=== PATIENT | female | born 1965 | race Caucasian/White ===

== ENCOUNTER 2022-04-23 16:09 | Emergency (ER) | payer OTHER, SELFPAY ==
[2022-04-23] VITALS (17 sets, daily range): BP systolic 119–142; BP diastolic 65–81; PULSE 84–103; RESP 11–23; TEMP 37; O2SAT 96–99; BMI 24.7
--- NOTE | 2022-04-23 16:24 | DI.RAD.S_ITS ---
PROCEDURE: XR CHEST 1V INDICATIONS: chest pain TECHNIQUE: One view of the chest was acquired. COMPARISON: None. FINDINGS: Surgical changes and devices: None. Lungs and pleura: Mild coarsening at the right base. Mediastinum: Mediastinal contours appear normal. Heart size is normal. Bones and chest wall: No suspicious bony lesions. Overlying soft tissues appear unremarkable. IMPRESSION: Mild right basilar coarsening suggestive of edema versus developing pneumonia. Dictated by: Eliza Nolan M.D. on 04/23/2022 at 17:13 Approved by: Eliza Nolan M.D. on 04/23/2022 at 17:14
[2022-04-23 16:44] LABS: Add Manual Diff / Slide Review NO; Basophils Absolute Auto 0 /uL (0-100); Basophils Percent Auto 0.5 % (0-2); Eosinophils Absolute Auto 100 /uL (0-450); Eosinophils Percent Auto 0.9 % (2-4); Hematocrit 40.4 % (36-46); Hemoglobin 13.7 g/dL (12.0-16.0); Lymphocytes Absolute Auto 1500 /uL (1100-4500); Lymphocytes Percent Auto 20.6 % (25-40); Mean Corpuscular HGB Conc 33.8 % (30-36); Mean Corpuscular Hemoglobin 29.8 PG (26-34); Mean Corpuscular Volume 88.1 fL (80-100); Monocytes Absolute Auto 800 /uL (0-900); Neutrophils Absolute Auto 4800 /uL (1500-7000); Platelet Count 352 X10^3/uL (150-400); Red Blood Cell Count 4.58 X10^6/uL (4.0-5.2); Red Cell Distribution Width 13.7 % (11.6-14.8); White Blood Cell Count 7.2 X10^3/uL (4.5-11.0)
--- NOTE | 2022-04-23 17:18 | ED_ITS ---
HPI - Chest Pain <Uriel Livingston DO - Last Filed: 04/24/22 06:48> General Chief Complaint: Chest Pain Stated Complaint: Chest Pains/Chills/Neck Pain/Dizzy Time Seen by Provider: 04/23/22 16:33 Source: patient Mode of arrival: Family Vehicle Limitations: no limitations History of Present Illness HPI narrative: Patient is a 57-year-old female who is here for evaluation of chest pains and c hills and neck discomfort and feeling dizzy. Her symptoms have been going on for the past several days/weeks. She has actually had symptoms similar to this off and on for the past couple years. She has been evaluated in the past. Has been admitted to hospital in the past. This was not at this facility. She has had a stress test and echocardiogram. Has not followed up with Cardiology. She is new to the area. Her symptoms have returned over the past couple days. She is currently not having chest pain. No cough. No fevers but is having chills. Has not tried anything for symptoms. No lower extremity swelling. Related Data Home Medications Medication Instructions Recorded Confirmed naproxen sodium 220 mg tablet 220 mg PO BID PRN Pain (Scale 04/23/22 04/23/22 (Aleve) Score 1-3) Allergies Allergy/AdvReac Type Severity Reaction Status Date / Time Penicillins Allergy Rash Verified 04/23/22 16:28 Review of Systems <DO Janelle Gallagher Last Filed: 04/24/22 06:48> Review of Systems ROS Unobtainable: All systems reviewed & are unremarkable except as noted in HPI and below Patient History <DO Janelle Gallagher Last Filed: 04/24/22 06:48> Medical History Healthy adult Social History Smoking Status: Never smoker Smoking Status: Never smoker alcohol intake frequency: 0-2 drinks per day Substance Use Type: does not use Exam <DO Janelle Gallagher Last Filed: 04/24/22 06:48> Initial Vital Signs Initial Vital Signs: Vital Signs Temperature 98.6 F 04/23/22 16:24 Pulse Rate 103 H 04/23/22 16:24 Respiratory Rate 18 04/23/22 16:24 Blood Pressure 142/81 H 04/23/22 16:24 Pulse Oximetry 96 04/23/22 16:24 Oxygen Delivery Method 04/23/22 16:24 Const General: cooperative, healthy appearing and comfortable HENMT Head: normal to inspection and normocephalic Chest Chest: No crepitus and No tenderness Resp Effort & Inspection: normal respiratory effort Auscultation: clear to auscultation bilaterally Cardio Rate: regular rate Rhythm: regular rhythm GI Inspection: normal to inspection Skin General: no rashes or lesions noted Neuro General: patient alert, patient awake, patient oriented x3 and moves all extremities Extrem General: No edema Psych Appearance: grossly normal and well kempt <Jordan Aguilar MD - Last Filed: 04/30/22 05:13> Initial Vital Signs Initial Vital Signs: Vital Signs Temperature 98.6 F 04/23/22 16:24 Pulse Rate 103 H 04/23/22 16:24 Respiratory Rate 18 04/23/22 16:24 Blood Pressure 142/81 H 04/23/22 16:24 Pulse Oximetry 96 04/23/22 16:24 Oxygen Delivery Method 04/23/22 16:24 Course <Uriel Livingston DO - Last Filed: 04/24/22 06:48> Orders Ordered: Discontinued Medications Aspirin (Aspirin 81 Mg Chew Tab) 324 mg PO NOW ONE Stop: 04/23/22 18:38 Last Admin: 04/23/22 18:55 Dose: 324 mg Documented By: MORALES Atorvastatin Calcium (Atorvastatin 20 Mg Tablet) 40 mg PO NOW ONE Stop: 04/23/22 20:43 Last Admin: 04/23/22 21:07 Dose: 40 mg Documented By: NR Clopidogrel Bisulfate (Clopidogrel 75 Mg Tablet) 300 mg PO NOW ONE Stop: 04/23/22 20:43 Last Admin: 04/23/22 21:07 Dose: 300 mg Documented By: NR Heparin Sodium (Porcine) (Heparin 5,000 Unit/Ml Vial) 4,700 unit 80 unit/kg (4700 unit) IV NOW ONE Stop: 04/23/22 20:42 Last Admin: 04/23/22 21:08 Dose: 4,700 unit Documented By: NR Heparin Sodium/Dextrose (Heparin Drip) 25,000 unit in 500 mls @ 14.228 mls/hr IV CONT BHAVNA; Protocol Last Titration: 04/23/22 22:30 Dose: 12 units/kg/hr, 14.228 mls/hr Documented By: Admin: 04/23/22 21:10 Dose: 12 units/kg/hr, 14.228 mls/hr Documented By: NR Vital Signs Vital signs: Vital Signs - 8 hr 04/23/22 16:24 04/23/22 16:25 04/23/22 16:30 Temperature 98.6 F Pulse Rate 103 H 94 H 93 H Respiratory Rate 18 12 Blood Pressure 142/81 H Pulse Oximetry 96 98 98 Oxygen Delivery Method Room Air 04/23/22 16:31 04/23/22 16:31 04/23/22 17:00 Temperature Pulse Rate 94 H Respiratory Rate 11 L Blood Pressure 131/69 140/73 Pulse Oximetry 98 Oxygen Delivery Method 04/23/22 17:00 04/23/22 17:30 04/23/22 17:30 Temperature Pulse Rate 97 H 84 Respiratory Rate 21 17 Blood Pressure 119/71 Pulse Oximetry 97 97 Oxygen Delivery Method 04/23/22 18:00 04/23/22 18:00 04/23/22 18:30 Temperature Pulse Rate 91 H 84 Respiratory Rate 18 19 Blood Pressure 124/65 Pulse Oximetry 98 98 Oxygen Delivery Method 04/23/22 18:35 04/23/22 18:35 04/23/22 19:00 Temperature Pulse Rate 93 H Respiratory Rate 22 Blood Pressure 124/68 132/78 Pulse Oximetry 98 Oxygen Delivery Method 04/23/22 19:00 Temperature Pulse Rate 88 Respiratory Rate 23 Blood Pressure Pulse Oximetry 97 Oxygen Delivery Method <Jordan Aguilar MD - Last Filed: 04/30/22 05:13> Course Course Narrative: 6:30 p.m.. Sign out from Dr. Livingston, patient will need to be admitted for chest pain rule abscess stress test/echocardiogram. Slight elevation in troponin. 3 hour repeat troponin pending. Chest pain-free at this time. Patient is aware she will be admitted versus transfer pending bed availability. I introduced myself to patient. She understands treatment plan. No complaints at this time. She understands possible transfer/admit pending results and possibly starting heparin. Repeat troponin at 7:30 p.m. tonight. Decision to Admit Date: 04/23/22 Decision to Admit time: 18:00 Orders Ordered: Discontinued Medications Aspirin (Aspirin 81 Mg Chew Tab) 324 mg PO NOW ONE Stop: 04/23/22 18:38 Last Admin: 04/23/22 18:55 Dose: 324 mg Documented By: MORALES Atorvastatin Calcium (Atorvastatin 20 Mg Tablet) 40 mg PO NOW ONE Stop: 04/23/22 20:43 Last Admin: 04/23/22 21:07 Dose: 40 mg Documented By: NR Clopidogrel Bisulfate (Clopidogrel 75 Mg Tablet) 300 mg PO NOW ONE Stop: 04/23/22 20:43 Last Admin: 04/23/22 21:07 Dose: 300 mg Documented By: NR Heparin Sodium (Porcine) (Heparin 5,000 Unit/Ml Vial) 4,700 unit 80 unit/kg (4700 unit) IV NOW ONE Stop: 04/23/22 20:42 Last Admin: 04/23/22 21:08 Dose: 4,700 unit Documented By: NR Heparin Sodium/Dextrose (Heparin Drip) 25,000 unit in 500 mls @ 14.228 mls/hr IV CONT BHAVNA; Protocol Last Titration: 04/23/22 22:30 Dose: 12 units/kg/hr, 14.228 mls/hr Documented By: Admin: 04/23/22 21:10 Dose: 12 units/kg/hr, 14.228 mls/hr Documented By: DIRK Reevaluation(s) Reevaluation #1: Reviewed with patient had 2nd troponin and. Non-STEMI diagnosis. Understands will need transfer for facility with heart catheterization capability. Time: 20:44 Consultations Consultation #1: Spoke with Cardiology on-call, dr dalal, recommends transferring patient to [facility] if available beds. However we did speak with the test desk supervisor there are no beds available there. Will have to find another facility. We do not have heart catheterization capability here, heparin and Plavix and aspirin and atorvastatin has been started Time: 20:51 Consultation #2: [facility] patient Time: 21:24 Vital Signs Vital signs: Vital Signs - 8 hr 04/23/22 16:24 04/23/22 16:25 04/23/22 16:30 Temperature 98.6 F Pulse Rate 103 H 94 H 93 H Respiratory Rate 18 12 Blood Pressure 142/81 H Pulse Oximetry 96 98 98 Oxygen Delivery Method Room Air 04/23/22 16:31 04/23/22 16:31 04/23/22 17:00 Temperature Pulse Rate 94 H Respiratory Rate 11 L Blood Pressure 131/69 140/73 Pulse Oximetry 98 Oxygen Delivery Method 04/23/22 17:00 04/23/22 17:30 04/23/22 17:30 Temperature Pulse Rate 97 H 84 Respiratory Rate 21 17 Blood Pressure 119/71 Pulse Oximetry 97 97 Oxygen Delivery Method 04/23/22 18:00 04/23/22 18:00 04/23/22 18:30 Temperature Pulse Rate 91 H 84 Respiratory Rate 18 19 Blood Pressure 124/65 Pulse Oximetry 98 98 Oxygen Delivery Method 04/23/22 18:35 04/23/22 18:35 04/23/22 19:00 Temperature Pulse Rate 93 H Respiratory Rate 22 Blood Pressure 124/68 132/78 Pulse Oximetry 98 Oxygen Delivery Method 04/23/22 19:00 Temperature Pulse Rate 88 Respiratory Rate 23 Blood Pressure Pulse Oximetry 97 Oxygen Delivery Method MDM - Chest Pain <Uriel Livingston DO - Last Filed: 04/24/22 06:48> Lab Data Attestation: I reviewed the patient's lab results. Result diagrams: 04/23/22 16:31 04/23/22 16:31 Labs: Lab Results 04/23/22 04/23/22 04/23/22 Range/Units 16:31 16:31 16:31 WBC 7.2 (4.5-11.0) X10^3/uL RBC 4.58 (4.0-5.2) X10^6/uL Hgb 13.7 (12.0-16.0) g/dL Hct 40.4 (36-46) % MCV 88.1 (80-100) fL MCH 29.8 (26-34) PG MCHC 33.8 (30-36) % RDW 13.7 (11.6-14.8) % Plt Count 352 (150-400) X10^3/uL Neut % (Auto) 67.0 (50-75) % Lymph % (Auto) 20.6 L (25-40) % [place] % (Auto) 11.0 (3-14) % Eos % (Auto) 0.9 L (2-4) % Baso % (Auto) 0.5 (0-2) % Neut # (Auto) 4800 (2244-1156) /uL Lymph # (Auto) 1500 (7011-6426) /uL [place] # (Auto) 800 (0-900) /uL Eos # (Auto) 100 (0-450) /uL Baso # (Auto) 0 (0-100) /uL D-Dimer 229 (<230) ng/mL Sodium 142 (137-145) mmol/L Potassium 4.2 (3.4-5.1) mmol/L Chloride 105 (98-107) mmol/L Carbon Dioxide 32 (22-32) mmol/L BUN 10 (7-17) mg/dL Creatinine 0.63 (0.52-1.04) mg/dL Estimated GFR > 60 (>60) mL/min BUN/Creatinine Ratio 15.9 (6-22) Glucose 132 H (70-100) mg/dL Calcium 8.9 (8.4-10.2) mg/dL Magnesium 2.1 (1.6-2.3) mg/dL Total Bilirubin 0.4 (0.2-1.3) mg/dL AST 25 (14-36) IU/L ALT 21 (<35) IU/L Alkaline Phosphatase 91 (38-126) U/L Total Creatine Kinase 48 (30-135) U/L CK-MB (CK-2) TNP CK-MB (CK-2) Rel Index TNP Troponin I 0.081 H (0.01-0.034) ng/mL NT-Pro-B Natriuret Pep (<125) pg/mL Total Protein 7.5 (6.3-8.2) g/dL Albumin 4.2 (3.5-5.0) g/dL Globulin 3.3 (1.7-4.1) g/dL Albumin/Globulin Ratio 1.3 (1.0-2.8) Lipase 81 (23-300) U/L SARS-CoV-2 (PCR) (Negative) Influenza A (RT-PCR) (NEGATIVE) Influenza B (RT-PCR) (NEGATIVE) 04/23/22 04/23/22 04/23/22 Range/Units 16:31 18:55 19:24 WBC (4.5-11.0) X10^3/uL RBC (4.0-5.2) X10^6/uL Hgb (12.0-16.0) g/dL Hct (36-46) % MCV (80-100) fL MCH (26-34) PG MCHC (30-36) % RDW (11.6-14.8) % Plt Count (150-400) X10^3/uL Neut % (Auto) (50-75) % Lymph % (Auto) (25-40) % [place] % (Auto) (3-14) % Eos % (Auto) (2-4) % Baso % (Auto) (0-2) % Neut # (Auto) (5849-6446) /uL Lymph # (Auto) (0917-2250) /uL [place] # (Auto) (0-900) /uL Eos # (Auto) (0-450) /uL Baso # (Auto) (0-100) /uL D-Dimer (<230) ng/mL Sodium (137-145) mmol/L Potassium (3.4-5.1) mmol/L Chloride (98-107) mmol/L Carbon Dioxide (22-32) mmol/L BUN (7-17) mg/dL Creatinine (0.52-1.04) mg/dL Estimated GFR (>60) mL/min BUN/Creatinine Ratio (6-22) Glucose (70-100) mg/dL Calcium (8.4-10.2) mg/dL Magnesium (1.6-2.3) mg/dL Total Bilirubin (0.2-1.3) mg/dL AST (14-36) IU/L ALT (<35) IU/L Alkaline Phosphatase (38-126) U/L Total Creatine Kinase 43 (30-135) U/L CK-MB (CK-2) TNP CK-MB (CK-2) Rel Index TNP Troponin I 0.116 H (0.01-0.034) ng/mL NT-Pro-B Natriuret Pep 190 H (<125) pg/mL Total Protein (6.3-8.2) g/dL Albumin (3.5-5.0) g/dL Globulin (1.7-4.1) g/dL Albumin/Globulin Ratio (1.0-2.8) Lipase (23-300) U/L SARS-CoV-2 (PCR) Negative (Negative) Influenza A (RT-PCR) Flu a negative (NEGATIVE) Influenza B (RT-PCR) Flu b negative (NEGATIVE) Imaging Data Chest x-ray: Radiologist's Impression: [address] [address] XRay Report Signed Patient: Liudmila Major MR#: [id number] : 1965 Acct:[id number] Age/Sex: 57 / F Date of Service: 04/23/22 Loc: ED Accession Number: [id number] ?? Procedure: XR chest 1V Ordering Provider: Uriel Livingston D.O. PROCEDURE:? XR CHEST 1V ? INDICATIONS:? chest pain ? TECHNIQUE:? One view of the chest was acquired.? ? COMPARISON:? None. ? FINDINGS:? ? Surgical changes and devices:? None.? ? Lungs and pleura:? Mild coarsening at the right base. ? Mediastinum:? Mediastinal contours appear normal.? Heart size is normal.? ? Bones and chest wall:? No suspicious bony lesions.? Overlying soft tissues appear unremarkable.? ? IMPRESSION:? Mild right basilar coarsening suggestive of edema versus developing pneumonia. ? ? Dictated by: Eliza Nolan M.D. on 04/23/2022 at 17:13 ? ? Approved by: Eliza Nolan M.D. on 04/23/2022 at 17:14? ECG Data Attestation: I personally reviewed and interpreted this ECG as follows: Prior ECG tracings: available for review Interpretation: Sinus rhythm Ventricular rate 96 A left bundle-branch block LVH No ST T wave changes MDM Narrative Medical decision making narrative: Somewhat difficult to follow the patient is it appears that her symptoms have been off and on for several years but potentially just worsening over the past couple days. Her EKG shows left bundle-branch block which is not new for her. No prior EKGs are available for review is she is new to the area. Her prior cardiac workup is also not available for review. She generally feels unwell. Chest x-ray is concerning for pneumonia however she is afebrile and is not c oughing and has clear lung exam. She is not clinically fluid overloaded/and CHF. Initial troponin elevated. Does require repeat. Care turned over to Dr. aguilar to follow-up and disposition. <Jordan Aguilar MD - Last Filed: 06/30/22 05:13> Differential Diagnosis Differential diagnosis: Likely stable angina, unstable angina pectoris, atypical chest pain, st elevation myocardial infarction and other (Non-STEMI) Lab Data Labs: Lab Results 04/23/22 04/23/22 04/23/22 Range/Units 16:31 16:31 16:31 WBC 7.2 (4.5-11.0) X10^3/uL RBC 4.58 (4.0-5.2) X10^6/uL Hgb 13.7 (12.0-16.0) g/dL Hct 40.4 (36-46) % MCV 88.1 (80-100) fL MCH 29.8 (26-34) PG MCHC 33.8 (30-36) % RDW 13.7 (11.6-14.8) % Plt Count 352 (150-400) X10^3/uL Neut % (Auto) 67.0 (50-75) % Lymph % (Auto) 20.6 L (25-40) % [place] % (Auto) 11.0 (3-14) % Eos % (Auto) 0.9 L (2-4) % Baso % (Auto) 0.5 (0-2) % Neut # (Auto) 4800 (9732-4057) /uL Lymph # (Auto) 1500 (5139-7868) /uL [place] # (Auto) 800 (0-900) /uL Eos # (Auto) 100 (0-450) /uL Baso # (Auto) 0 (0-100) /uL D-Dimer 229 (<230) ng/mL Sodium 142 (137-145) mmol/L Potassium 4.2 (3.4-5.1) mmol/L Chloride 105 (98-107) mmol/L Carbon Dioxide 32 (22-32) mmol/L BUN 10 (7-17) mg/dL Creatinine 0.63 (0.52-1.04) mg/dL Estimated GFR > 60 (>60) mL/min BUN/Creatinine Ratio 15.9 (6-22) Glucose 132 H (70-100) mg/dL Calcium 8.9 (8.4-10.2) mg/dL Magnesium 2.1 (1.6-2.3) mg/dL Total Bilirubin 0.4 (0.2-1.3) mg/dL AST 25 (14-36) IU/L ALT 21 (<35) IU/L Alkaline Phosphatase 91 (38-126) U/L Total Creatine Kinase 48 (30-135) U/L CK-MB (CK-2) TNP CK-MB (CK-2) Rel Index TNP Troponin I 0.081 H (0.01-0.034) ng/mL NT-Pro-B Natriuret Pep (<125) pg/mL Total Protein 7.5 (6.3-8.2) g/dL Albumin 4.2 (3.5-5.0) g/dL Globulin 3.3 (1.7-4.1) g/dL Albumin/Globulin Ratio 1.3 (1.0-2.8) Lipase 81 (23-300) U/L SARS-CoV-2 (PCR) (Negative) Influenza A (RT-PCR) (NEGATIVE) Influenza B (RT-PCR) (NEGATIVE) 04/23/22 04/23/22 04/23/22 Range/Units 16:31 18:55 19:24 WBC (4.5-11.0) X10^3/uL RBC (4.0-5.2) X10^6/uL Hgb (12.0-16.0) g/dL Hct (36-46) % MCV (80-100) fL MCH (26-34) PG MCHC (30-36) % RDW (11.6-14.8) % Plt Count (150-400) X10^3/uL Neut % (Auto) (50-75) % Lymph % (Auto) (25-40) % [place] % (Auto) (3-14) % Eos % (Auto) (2-4) % Baso % (Auto) (0-2) % Neut # (Auto) (9840-4335) /uL Lymph # (Auto) (2073-7286) /uL [place] # (Auto) (0-900) /uL Eos # (Auto) (0-450) /uL Baso # (Auto) (0-100) /uL D-Dimer (<230) ng/mL Sodium (137-145) mmol/L Potassium (3.4-5.1) mmol/L Chloride (98-107) mmol/L Carbon Dioxide (22-32) mmol/L BUN (7-17) mg/dL Creatinine (0.52-1.04) mg/dL Estimated GFR (>60) mL/min BUN/Creatinine Ratio (6-22) Glucose (70-100) mg/dL Calcium (8.4-10.2) mg/dL Magnesium (1.6-2.3) mg/dL Total Bilirubin (0.2-1.3) mg/dL AST (14-36) IU/L ALT (<35) IU/L Alkaline Phosphatase (38-126) U/L Total Creatine Kinase 43 (30-135) U/L CK-MB (CK-2) TNP CK-MB (CK-2) Rel Index TNP Troponin I 0.116 H (0.01-0.034) ng/mL NT-Pro-B Natriuret Pep 190 H (<125) pg/mL Total Protein (6.3-8.2) g/dL Albumin (3.5-5.0) g/dL Globulin (1.7-4.1) g/dL Albumin/Globulin Ratio (1.0-2.8) Lipase (23-300) U/L SARS-CoV-2 (PCR) Negative (Negative) Influenza A (RT-PCR) Flu a negative (NEGATIVE) Influenza B (RT-PCR) Flu b negative (NEGATIVE) <Jordan Aguilar MD - Last Filed: 04/30/22 05:13> Critical Care Time Attestation: Critical Care Time 35 minutes: Critical care time is separate from other billable procedures. This critical care time includes consultation with family and other consulting doctors, review of records, and interpretation of data from labs, EKGs, imaging, etc. Discharge Plan Departure Patient Disposition: [facility] Clinical Impression: Non-ST elevated myocardial infarction (non-STEMI) Prescriptions: No Action naproxen sodium [Aleve] 220 mg Tablet 220 mg PO BID PRN (Reason: Pain (Scale Score 1-3)) Referrals: Miscellaneous,DoctorMD [Primary Care Provider] -
[2022-04-23 17:31] LABS: Alanine Aminotransferase 21 IU/L (<35); Albumin 4.2 g/dL (3.5-5.0); Albumin Globulin Ratio 1.3 (1.0-2.8); Alkaline Phosphatase 91 U/L (38-126); Aspartate Aminotransferase 25 IU/L (14-36); BUN Creatinine Ratio 15.9 (6-22); Bilirubin Total 0.4 mg/dL (0.2-1.3); Blood Urea Nitrogen 10 mg/dL (7-17); Calcium 8.9 mg/dL (8.4-10.2); Carbon Dioxide 32 mmol/L (22-32); Chloride 105 mmol/L (98-107); Creatine Kinase 48 U/L (30-135); Estimated Glomerular Filt Rate > 60 mL/min (>60); Globulin 3.3 g/dL (1.7-4.1); Glucose 132 mg/dL (70-100); HEMOLYSIS < 15 (0-50); Lipase 81 U/L (23-300); Magnesium 2.1 mg/dL (1.6-2.3); Potassium 4.2 mmol/L (3.4-5.1); Sodium 142 mmol/L (137-145); Total Protein 7.5 g/dL (6.3-8.2)
[2022-04-23 17:41] LABS: Troponin I 0.081 ng/mL (0.01-0.034)
[2022-04-23 18:07] LABS: D Dimer 229 ng/mL (<230)
[2022-04-23] MEDS: ASPIRIN 81 MG CHEW TAB 324 MG PO (18:55)
[2022-04-23 19:13] LABS: NT-proBNP (BNP-Adult 18+) 190 pg/mL (<125)
[2022-04-23 19:41] LABS: Creatine Kinase 43 U/L (30-135)
[2022-04-23 19:49] LABS: Influenza A - CEPHEID Flu A NEGATIVE (NEGATIVE); Influenza B - CEPHEID Flu B NEGATIVE (NEGATIVE)
[2022-04-23 19:50] LABS: COVID-19 CEPHEID PCR (VTM/NP) Negative (Negative)
[2022-04-23 19:54] LABS: Troponin I 0.116 ng/mL (0.01-0.034)
[2022-04-23] MEDS: ATORVASTATIN 20 MG TABLET 40 MG PO (21:07)
[2022-04-23] MEDS: CLOPIDOGREL 75 MG TABLET 300 MG PO (21:07)
[2022-04-23] MEDS: HEPARIN 5,000 UNIT/ML VIAL 4700 UNIT IV (21:08)
[2022-04-23] MEDS: HEPARIN DRIP 25,000 UNIT/500 ML IV.SOLN 14.228 UNIT IV (21:10)
--- NOTE | 2022-04-24 03:33 | PC.NURSE ---
Pt transferred with Heparin drip to . see MAR for additional information.
== END 2022-04-23 22:38 | disposition short-term general hospital (02) ==
PROVIDERS: Emergency Medicine; Emergency Provider Emergency Medicine
DX: I21.4 Non-ST elevation (NSTEMI) myocardial infarction (principal); R74.8 Abnormal levels of other serum enzymes; Z20.822 Contact with and (suspected) exposure to COVID-19
CPT/HCPCS: 36415; 71045; 80053; 82550; 83690; 83735; 83880; 84484; 85025; 85379; 87635; 93005; 96365; 96375; 99284; 99285; C9803; J1644

== ENCOUNTER 2022-07-03 15:46 | Observation (INO) | payer OTHER, SELFPAY ==
[2022-07-03] VITALS (9 sets, daily range): BP systolic 120–171; BP diastolic 57–86; PULSE 61–92; RESP 16–50; TEMP 36.3–37.1; O2SAT 95–100; BMI 23.4; BMI 25.0
[2022-07-03 17:38] LABS: Alanine Aminotransferase 14 IU/L (<35); Albumin 4.5 g/dL (3.5-5.0); Albumin Globulin Ratio 1.4 (1.0-2.8); Alkaline Phosphatase 99 U/L (38-126); Aspartate Aminotransferase 20 IU/L (14-36); BUN Creatinine Ratio 22.6 (6-22); Bilirubin Total 0.6 mg/dL (0.2-1.3); Blood Urea Nitrogen 12 mg/dL (7-17); Calcium 8.8 mg/dL (8.4-10.2); Carbon Dioxide 24 mmol/L (22-32); Chloride 105 mmol/L (98-107); Estimated Glomerular Filt Rate > 60 mL/min (>60); Globulin 3.2 g/dL (1.7-4.1); Glucose 115 mg/dL (70-100); HEMOLYSIS < 15 (0-50); Lipase 62 U/L (23-300); Potassium 3.7 mmol/L (3.4-5.1); Sodium 137 mmol/L (137-145); Total Protein 7.7 g/dL (6.3-8.2)
[2022-07-03 17:39] LABS: Add Manual Diff / Slide Review NO; Basophils Absolute Auto 100 /uL (0-100); Basophils Percent Auto 0.4 % (0-2); Eosinophils Absolute Auto 100 /uL (0-450); Eosinophils Percent Auto 0.6 % (2-4); Hematocrit 42.5 % (36-46); Hemoglobin 14.3 g/dL (12.0-16.0); Lymphocytes Absolute Auto 1900 /uL (1100-4500); Lymphocytes Percent Auto 10.7 % (25-40); Mean Corpuscular HGB Conc 33.6 % (30-36); Mean Corpuscular Hemoglobin 30.2 PG (26-34); Mean Corpuscular Volume 89.8 fL (80-100); Monocytes Absolute Auto 900 /uL (0-900); Monocytes Percent Auto 4.8 % (3-14); Neutrophils Absolute Auto 15000 /uL (1500-7000); Neutrophils Percent Auto 83.5 % (50-75); Platelet Count 377 X10^3/uL (150-400); Red Blood Cell Count 4.73 X10^6/uL (4.0-5.2); White Blood Cell Count 17.9 X10^3/uL (4.5-11.0)
[2022-07-03] MEDS: ONDANSETRON 4 MG/2 ML INJ IV ×2 (17:45→19:20)
--- NOTE | 2022-07-03 18:05 | PC.NURSE ---
patient hyperventilating, clammy and expressing severe pain. Discussed pain with Neha. Order for ketorlac being placed.
[2022-07-03] MEDS: KETOROLAC 30 MG/ML VIAL IV (18:12)
--- NOTE | 2022-07-03 18:45 | PC.NURSE ---
patient restless in bed, continues to be in pain. Provider aware.
--- NOTE | 2022-07-03 19:04 | DI.RAD.S_ITS ---
PROCEDURE: XR CHEST 2V INDICATIONS: Chest pain and shortness of breath TECHNIQUE: 2 views of the chest were acquired. COMPARISON: [facility], CR, XR CHEST 1V, 04/23/2022, 16:44. FINDINGS: Surgical changes and devices: None. Lungs and pleura: Lungs are clear. No pleural effusions or pneumothorax. Mediastinum: Mediastinal contours are normal. Heart size is normal. Bones and chest wall: No suspicious bony abnormalities. Soft tissues appear unremarkable. IMPRESSION: No acute cardiopulmonary abnormality. Dictated by: Baljeet Palumbo M.D. on 07/03/2022 at 21:01 Approved by: Baljeet Palumbo M.D. on 07/03/2022 at 21:02
--- NOTE | 2022-07-03 19:06 | DI.CT.S_ITS ---
PROCEDURE: CT ABDOMEN PELVIS W CON INDICATIONS: Abdominal pain TECHNIQUE: After the administration of IV contrast, axial sections were acquired from the lung bases to the pubic symphysis. Coronal and sagittal reformats were performed. For radiation dose reduction, the following was used: automated exposure control, adjustment of mA and/or kV according to patient size. COMPARISON: None. FINDINGS: Image quality: Excellent. Lung bases: There is minimal dependent atelectasis. There is a small hiatal hernia. Bilateral breast implants are partially visualized. Heart: Heart is normal in size. ABDOMEN: Liver: There are few scattered hypodense foci in the liver which are too small to characterize but statistically likely represent cysts. Mild focal fatty infiltration is also demonstrated anteriorly in the left hepatic lobe. Gallbladder: Within normal limits without calcified gallstones. Biliary ducts: No biliary ductal dilatation. Pancreas: Unremarkable. Spleen: Normal in size. Adrenal Glands: No adrenal nodules. Kidneys and Ureters: No hydronephrosis. Stomach and Bowel: Stomach, small bowel loops, and colon are normal in caliber and wall thickness. The appendix is distended with fluid, measuring up to 1.1 cm. There is associated mild wall thickening and enhancement as well as mild periappendiceal fat stranding. The findings are consistent with developing acute appendicitis. There are surgical sutures in the sigmoid colon. Peritoneum: No abnormal intraperitoneal fluid. No free air. Ventral Wall: No hernia. Abdominal Nodes: No retroperitoneal or mesenteric adenopathy by size criteria. Vessels: Aorta and inferior vena cava are normal in size. PELVIS: Pelvic Organs: There is a large thin-walled bilobed septated left ovarian cyst or 2 adjacent cysts measuring up to 9.7 cm in craniocaudal dimension. Bladder: Unremarkable. Pelvic Nodes: No enlarged lymph nodes. Miscellaneous: No inguinal hernias are seen. Bones: Visualized osseous structures demonstrate no suspicious focal lesions. IMPRESSION: 1. Findings consistent with acute appendicitis. No evidence of perforation. 2. Large bilobed septated left ovarian cyst there are 2 adjacent cysts measuring up to 9.7 cm in aggregate dimension. Recommended for further evaluation with ultrasound. Patient may be at risk for ovarian torsion. A cystic ovarian neoplasm is also not excluded. Findings discussed with Dr. Bowden on 07/03/2022 at 8:30 p.m.. Dictated by: Nick Simpson M.D. on 07/03/2022 at 20:27 Approved by: Nick Simpson M.D. on 07/03/2022 at 20:34
--- NOTE | 2022-07-03 19:10 | ED_ITS ---
HPI - Abdominal Pain <Jefry Solomon PA-C - Last Filed: 07/03/22 20:04> General Chief Complaint: Abdominal Pain Stated Complaint: Severe lower ABD pain Time Seen by Provider: 07/03/22 18:03 Source: patient Mode of arrival: Ambulatory History of Present Illness HPI narrative: The regular female presents to the emergency room today with complaint lower abdominal pain. Patient states the pain is in her bilateral lower abdominal area and rotates up to her umbilicus. Admits to having a history of kidney stones he does a history of urinary tract infection to include a kidney infection. States this pain started this morning and now pain is 10/10 also states she has had shortness of breath and chest pain associated with this abdominal pain. Related Data Home Medications Medication Instructions Recorded Confirmed naproxen sodium 220 mg tablet 220 mg PO BID PRN Pain (Scale 04/23/22 04/23/22 (Aleve) Score 1-3) Allergies Allergy/AdvReac Type Severity Reaction Status Date / Time Penicillins Allergy Rash Verified 07/03/22 16:41 Review of Systems <JAM Parson Last Filed: 07/03/22 20:04> Review of Systems Narrative: R.O.S.: General: No fever, chills or fatigue. Cardiovascular: No chest pain or palpitations Respiratory: No S.O.B. HEENT: No congestion, ear pain, rhinorrhea, sore throat or tinnitus Gastrointestinal: Patient is a [age] year old Male/Female presents to the emergency room today with complaint of abdominal pain for Length Of Time. ?The abdominal pain is Acute/Chronic. Skin: No rash or associated abnormalities Musculoskeletal: No pain in muscles or joints, no limitation of range of motion, no paresthesia or numbness. ?? Neurological: Awake, alert and in not apparent distress. No Headaches, changes in vision or other related neurological concerns. Patient History <Jefry Solomon PA-C - Last Filed: 07/03/22 20:04> Medical History Healthy adult Social History Smoking Status: Never smoker Smoking Status: Never smoker alcohol intake frequency: 0-2 drinks per day Substance Use Type: does not use Exam <JAM Parson Last Filed: 07/03/22 20:04> Narrative Exam Narrative: Physical Exam: ? General: Patient is in obvious acute distress at this time? Head: Normocephalic, no lesions. Chest: Lungs CTAB, no rales, rhonchi or wheezes. ?? Heart: RRR, no murmurs, rubs or gallops. Eyes: PERRLA, EOM's full, conjunctivae clear. ? Neuro: Physiological, no localizing findings, CN3-12 intact. ?? Extremities: Warm, well perfused, FROM, no deformities, no edema. ?? Skin: Normal, no rashes, no lesions noted. ?? PSYCHIATRIC: The mood is good, no blunted affect. Speech is clear. Thought process is linear, thought content is appropriate. The voice is without significant inflection. Gastrointestinal: Soft; tender to palpation in bilateral lower quadrants; negative CVA tenderness; ND; Pos BS with Neg. rebound tenderness. No scars or major deformities noted on Visual Inspection. Initial Vital Signs Initial Vital Signs: Vital Signs Temperature 98.7 F 07/03/22 16:34 Pulse Rate 73 07/03/22 16:34 Respiratory Rate 18 07/03/22 16:34 Blood Pressure 171/84 H 07/03/22 16:34 Pulse Oximetry 98 07/03/22 16:34 Oxygen Delivery Method 07/03/22 16:34 <Neo Bowden DO - Last Filed: 07/04/22 04:36> Initial Vital Signs Initial Vital Signs: Vital Signs Temperature 98.7 F 07/03/22 16:34 Pulse Rate 73 07/03/22 16:34 Respiratory Rate 18 07/03/22 16:34 Blood Pressure 171/84 H 07/03/22 16:34 Pulse Oximetry 98 07/03/22 16:34 Oxygen Delivery Method 07/03/22 16:34 Course <Jefry Solomon PA-C - Last Filed: 07/03/22 20:04> Orders Ordered: ED Orders 07/03/22 20:01 Urinalysis and Microscopic Stat Urine Culture Stat 07/03/22 20:57 US pelvic complete Stat 07/03/22 21:00 COVID19 -Nasal RAPID/Pre-Proc Stat Acetaminophen (Acetaminophen 325 Mg Tablet) 650 mg PO Q6HR BHAVNA Last Admin: 07/04/22 00:21 Dose: Not Given Documented By: SAL Hydromorphone HCl (Hydromorphone 0.5 Mg Inj) 0.5 mg IV Q4H PRN PRN Reason: Breakthrough pain only (8-10) Sodium Chloride (Normal Saline 0.9%) 1,000 mls @ 100 mls/hr IV CONT BHAVNA Last Admin: 07/04/22 00:20 Dose: 100 mls/hr Documented By: SAL Ciprofloxacin (Cipro) 400 mg in 200 mls @ 200 mls/hr IV Q12H [facility] Last Admin: 07/04/22 00:20 Dose: 200 mls/hr Documented By: SAL Metronidazole (Flagyl) 500 mg in 100 mls @ 100 mls/hr IV Q8H [facility] Last Admin: 07/04/22 00:20 Dose: 100 mls/hr Documented By: SAL Oxycodone HCl (Oxycodone Ir 5 Mg Tablet) 5 mg PO Q4HR PRN PRN Reason: Pain, Moderate (4-6) Discontinued Medications Piperacillin Sod/Tazobactam (Sod 4.5 gm/ Sodium Chloride) 100 mls @ 200 mls/hr IV NOW ONE Stop: 07/03/22 20:58 Last Admin: 07/03/22 21:10 Dose: 200 mls/hr Documented By: DIRK Ketorolac Tromethamine (Ketorolac 30 Mg/Ml Vial) 30 mg IV NOW ONE Stop: 07/03/22 18:08 Last Admin: 07/03/22 18:12 Dose: 30 mg Documented By: NOLAN Morphine Sulfate (Morphine 4 Mg/Ml Inj) 4 mg IV NOW ONE Stop: 07/03/22 19:04 Last Admin: 07/03/22 19:11 Dose: 4 mg Documented By: YURY Ondansetron HCl (Ondansetron 4 Mg/2 Ml Inj) 4 mg IV NOW ONE Stop: 07/03/22 17:42 Last Admin: 07/03/22 17:45 Dose: 4 mg Documented By: NOLAN Ondansetron HCl (Ondansetron 4 Mg/2 Ml Inj) 4 mg IV NOW ONE Stop: 07/03/22 19:18 Last Admin: 07/03/22 19:20 Dose: 4 mg Documented By: YURY Vital Signs Vital signs: Vital Signs - 8 hr 07/03/22 16:34 07/03/22 18:00 07/03/22 18:01 Temperature 98.7 F Pulse Rate 73 70 Respiratory Rate 18 39 H Blood Pressure 171/84 H 163/86 H Pulse Oximetry 98 100 Oxygen Delivery Method Room Air 07/03/22 18:30 07/03/22 18:30 07/03/22 19:00 Temperature Pulse Rate 61 Respiratory Rate 21 Blood Pressure 158/77 H 171/78 H Pulse Oximetry 99 Oxygen Delivery Method 07/03/22 19:00 Temperature Pulse Rate 65 Respiratory Rate 32 H Blood Pressure Pulse Oximetry 99 Oxygen Delivery Method <Neo Bowden DO - Last Filed: 07/04/22 04:36> Orders Ordered: ED Orders 07/03/22 20:01 Urinalysis and Microscopic Stat Urine Culture Stat 07/03/22 20:57 US pelvic complete Stat 07/03/22 21:00 COVID19 -Nasal RAPID/Pre-Proc Stat Acetaminophen (Acetaminophen 325 Mg Tablet) 650 mg PO Q6HR [facility] Last Admin: 07/04/22 00:21 Dose: Not Given Documented By: SAL Hydromorphone HCl (Hydromorphone 0.5 Mg Inj) 0.5 mg IV Q4H PRN PRN Reason: Breakthrough pain only (8-10) Sodium Chloride (Normal Saline 0.9%) 1,000 mls @ 100 mls/hr IV CONT [facility] Last Admin: 07/04/22 00:20 Dose: 100 mls/hr Documented By: SAL Ciprofloxacin (Cipro) 400 mg in 200 mls @ 200 mls/hr IV Q12H [facility] Last Admin: 07/04/22 00:20 Dose: 200 mls/hr Documented By: SAL Metronidazole (Flagyl) 500 mg in 100 mls @ 100 mls/hr IV Q8H [facility] Last Admin: 07/04/22 00:20 Dose: 100 mls/hr Documented By: SAL Oxycodone HCl (Oxycodone Ir 5 Mg Tablet) 5 mg PO Q4HR PRN PRN Reason: Pain, Moderate (4-6) Discontinued Medications Piperacillin Sod/Tazobactam (Sod 4.5 gm/ Sodium Chloride) 100 mls @ 200 mls/hr IV NOW ONE Stop: 07/03/22 20:58 Last Admin: 07/03/22 21:10 Dose: 200 mls/hr Documented By: DIRK Ketorolac Tromethamine (Ketorolac 30 Mg/Ml Vial) 30 mg IV NOW ONE Stop: 07/03/22 18:08 Last Admin: 07/03/22 18:12 Dose: 30 mg Documented By: NOLAN Morphine Sulfate (Morphine 4 Mg/Ml Inj) 4 mg IV NOW ONE Stop: 07/03/22 19:04 Last Admin: 07/03/22 19:11 Dose: 4 mg Documented By: YURY Ondansetron HCl (Ondansetron 4 Mg/2 Ml Inj) 4 mg IV NOW ONE Stop: 07/03/22 17:42 Last Admin: 07/03/22 17:45 Dose: 4 mg Documented By: NOLAN Ondansetron HCl (Ondansetron 4 Mg/2 Ml Inj) 4 mg IV NOW ONE Stop: 07/03/22 19:18 Last Admin: 07/03/22 19:20 Dose: 4 mg Documented By: YURY Consultations Consultation #1: Discussed with on-call General surgery (Dr. Barclay), happy to accept patient on his service, will give antibiotics and follow for resolution, possible surgical candidate Consultation #2: Call to on-call instrument lens generator, Dr. Patterson, we discussed the size of her ovary and possibility of torsion. She states that she will be involved in consultation and will work closely with Dr. Barclay Vital Signs Vital signs: Vital Signs - 8 hr 07/03/22 16:34 07/03/22 18:00 07/03/22 18:01 Temperature 98.7 F Pulse Rate 73 70 Respiratory Rate 18 39 H Blood Pressure 171/84 H 163/86 H Pulse Oximetry 98 100 Oxygen Delivery Method Room Air 07/03/22 18:30 07/03/22 18:30 07/03/22 19:00 Temperature Pulse Rate 61 Respiratory Rate 21 Blood Pressure 158/77 H 171/78 H Pulse Oximetry 99 Oxygen Delivery Method 07/03/22 19:00 Temperature Pulse Rate 65 Respiratory Rate 32 H Blood Pressure Pulse Oximetry 99 Oxygen Delivery Method MDM - Abdominal Pain <Jefry Solomon PA-C - Last Filed: 07/03/22 20:04> Lab Data Result diagrams: 07/03/22 17:17 07/03/22 17:17 Labs: Lab Results 07/03/22 07/03/22 07/03/22 Range/Units 17:17 17:17 17:17 WBC 17.9 H (4.5-11.0) X10^3/uL RBC 4.73 (4.0-5.2) X10^6/uL Hgb 14.3 (12.0-16.0) g/dL Hct 42.5 (36-46) % MCV 89.8 (80-100) fL MCH 30.2 (26-34) PG MCHC 33.6 (30-36) % RDW 14.0 (11.6-14.8) % Plt Count 377 (150-400) X10^3/uL Neut % (Auto) 83.5 H (50-75) % Lymph % (Auto) 10.7 L (25-40) % Grant % (Auto) 4.8 (3-14) % Eos % (Auto) 0.6 L (2-4) % Baso % (Auto) 0.4 (0-2) % Neut # (Auto) 76809 H (2331-9325) /uL Lymph # (Auto) 1900 (1609-7786) /uL Grant # (Auto) 900 (0-900) /uL Eos # (Auto) 100 (0-450) /uL Baso # (Auto) 100 (0-100) /uL Sodium 137 (137-145) mmol/L Potassium 3.7 (3.4-5.1) mmol/L Chloride 105 (98-107) mmol/L Carbon Dioxide 24 (22-32) mmol/L BUN 12 (7-17) mg/dL Creatinine 0.53 (0.52-1.04) mg/dL Estimated GFR > 60 (>60) mL/min BUN/Creatinine Ratio 22.6 H (6-22) Glucose 115 H (70-100) mg/dL Calcium 8.8 (8.4-10.2) mg/dL Total Bilirubin 0.6 (0.2-1.3) mg/dL AST 20 (14-36) IU/L ALT 14 (<35) IU/L Alkaline Phosphatase 99 (38-126) U/L Total Protein 7.7 (6.3-8.2) g/dL Albumin 4.5 (3.5-5.0) g/dL Globulin 3.2 (1.7-4.1) g/dL Albumin/Globulin Ratio 1.4 (1.0-2.8) Lipase 62 (23-300) U/L CA 125 Antigen 7.8 (0-35) U/mL Urine Color Urine Appearance Urine pH (4.5-8.0) Ur Specific [place] (1.000-1.035) Urine Protein (Negative) Urine Glucose (UA) (Negative) g/dL Urine Ketones (NEGATIVE) Urine Occult Blood (Negative) Urine Nitrate (Negative) Urine Bilirubin (NEGATIVE) Urine Urobilinogen (0.2) E.U./dL Ur Leukocyte Esterase (NEGATIVE) Urine RBC (0-5/HPF) Urine WBC (0-5/HPF) Ur Squamous Epith Cells (0-5/HPF) Amorphous Sediment Urine Bacteria (None) Urine Mucus (Negative) Ur Culture Indicated? SARS-CoV-2 (PCR) (Negative) 07/03/22 07/03/22 Range/Units 20:01 21:00 WBC (4.5-11.0) X10^3/uL RBC (4.0-5.2) X10^6/uL Hgb (12.0-16.0) g/dL Hct (36-46) % MCV (80-100) fL MCH (26-34) PG MCHC (30-36) % RDW (11.6-14.8) % Plt Count (150-400) X10^3/uL Neut % (Auto) (50-75) % Lymph % (Auto) (25-40) % Grant % (Auto) (3-14) % Eos % (Auto) (2-4) % Baso % (Auto) (0-2) % Neut # (Auto) (6477-4363) /uL Lymph # (Auto) (8169-0686) /uL Grant # (Auto) (0-900) /uL Eos # (Auto) (0-450) /uL Baso # (Auto) (0-100) /uL Sodium (137-145) mmol/L Potassium (3.4-5.1) mmol/L Chloride (98-107) mmol/L Carbon Dioxide (22-32) mmol/L BUN (7-17) mg/dL Creatinine (0.52-1.04) mg/dL Estimated GFR (>60) mL/min BUN/Creatinine Ratio (6-22) Glucose (70-100) mg/dL Calcium (8.4-10.2) mg/dL Total Bilirubin (0.2-1.3) mg/dL AST (14-36) IU/L ALT (<35) IU/L Alkaline Phosphatase (38-126) U/L Total Protein (6.3-8.2) g/dL Albumin (3.5-5.0) g/dL Globulin (1.7-4.1) g/dL Albumin/Globulin Ratio (1.0-2.8) Lipase (23-300) U/L CA 125 Antigen (0-35) U/mL Urine Color Yellow Urine Appearance Sl cloudy Urine pH 5.5 (4.5-8.0) Ur Specific [place] 1.020 (1.000-1.035) Urine Protein Negative (Negative) Urine Glucose (UA) Negative (Negative) g/dL Urine Ketones Negative (NEGATIVE) Urine Occult Blood 1+ H (Negative) Urine Nitrate Negative (Negative) Urine Bilirubin Negative (NEGATIVE) Urine Urobilinogen 0.2 (0.2) E.U./dL Ur Leukocyte Esterase 2+ H (NEGATIVE) Urine RBC 1-5/hpf (0-5/HPF) Urine WBC 10-30/hpf H (0-5/HPF) Ur Squamous Epith Cells 1-5 /hpf (0-5/HPF) Amorphous Sediment 1+ Urine Bacteria Moderate (10-30) H (None) Urine Mucus 1+ H (Negative) Ur Culture Indicated? Specimen cultured SARS-CoV-2 (PCR) Negative (Negative) MDM Narrative Medical decision making narrative: Patient is a 56-year-old female presents to the emergency room today with a co mplaint bilateral lower abdominal pain. Patient states this started this morning. Also has a history kidney stone On initial exam <Neo Bowden DO - Last Filed: 07/04/22 04:36> Lab Data Labs: Lab Results 07/03/22 07/03/22 07/03/22 Range/Units 17:17 17:17 17:17 WBC 17.9 H (4.5-11.0) X10^3/uL RBC 4.73 (4.0-5.2) X10^6/uL Hgb 14.3 (12.0-16.0) g/dL Hct 42.5 (36-46) % MCV 89.8 (80-100) fL MCH 30.2 (26-34) PG MCHC 33.6 (30-36) % RDW 14.0 (11.6-14.8) % Plt Count 377 (150-400) X10^3/uL Neut % (Auto) 83.5 H (50-75) % Lymph % (Auto) 10.7 L (25-40) % Grant % (Auto) 4.8 (3-14) % Eos % (Auto) 0.6 L (2-4) % Baso % (Auto) 0.4 (0-2) % Neut # (Auto) 37032 H (2886-5265) /uL Lymph # (Auto) 1900 (2648-5839) /uL Grant # (Auto) 900 (0-900) /uL Eos # (Auto) 100 (0-450) /uL Baso # (Auto) 100 (0-100) /uL Sodium 137 (137-145) mmol/L Potassium 3.7 (3.4-5.1) mmol/L Chloride 105 (98-107) mmol/L Carbon Dioxide 24 (22-32) mmol/L BUN 12 (7-17) mg/dL Creatinine 0.53 (0.52-1.04) mg/dL Estimated GFR > 60 (>60) mL/min BUN/Creatinine Ratio 22.6 H (6-22) Glucose 115 H (70-100) mg/dL Calcium 8.8 (8.4-10.2) mg/dL Total Bilirubin 0.6 (0.2-1.3) mg/dL AST 20 (14-36) IU/L ALT 14 (<35) IU/L Alkaline Phosphatase 99 (38-126) U/L Total Protein 7.7 (6.3-8.2) g/dL Albumin 4.5 (3.5-5.0) g/dL Globulin 3.2 (1.7-4.1) g/dL Albumin/Globulin Ratio 1.4 (1.0-2.8) Lipase 62 (23-300) U/L CA 125 Antigen 7.8 (0-35) U/mL Urine Color Urine Appearance Urine pH (4.5-8.0) Ur Specific [place] (1.000-1.035) Urine Protein (Negative) Urine Glucose (UA) (Negative) g/dL Urine Ketones (NEGATIVE) Urine Occult Blood (Negative) Urine Nitrate (Negative) Urine Bilirubin (NEGATIVE) Urine Urobilinogen (0.2) E.U./dL Ur Leukocyte Esterase (NEGATIVE) Urine RBC (0-5/HPF) Urine WBC (0-5/HPF) Ur Squamous Epith Cells (0-5/HPF) Amorphous Sediment Urine Bacteria (None) Urine Mucus (Negative) Ur Culture Indicated? SARS-CoV-2 (PCR) (Negative) 07/03/22 07/03/22 Range/Units 20:01 21:00 WBC (4.5-11.0) X10^3/uL RBC (4.0-5.2) X10^6/uL Hgb (12.0-16.0) g/dL Hct (36-46) % MCV (80-100) fL MCH (26-34) PG MCHC (30-36) % RDW (11.6-14.8) % Plt Count (150-400) X10^3/uL Neut % (Auto) (50-75) % Lymph % (Auto) (25-40) % Grant % (Auto) (3-14) % Eos % (Auto) (2-4) % Baso % (Auto) (0-2) % Neut # (Auto) (7145-8461) /uL Lymph # (Auto) (7214-4814) /uL Grant # (Auto) (0-900) /uL Eos # (Auto) (0-450) /uL Baso # (Auto) (0-100) /uL Sodium (137-145) mmol/L Potassium (3.4-5.1) mmol/L Chloride (98-107) mmol/L Carbon Dioxide (22-32) mmol/L BUN (7-17) mg/dL Creatinine (0.52-1.04) mg/dL Estimated GFR (>60) mL/min BUN/Creatinine Ratio (6-22) Glucose (70-100) mg/dL Calcium (8.4-10.2) mg/dL Total Bilirubin (0.2-1.3) mg/dL AST (14-36) IU/L ALT (<35) IU/L Alkaline Phosphatase (38-126) U/L Total Protein (6.3-8.2) g/dL Albumin (3.5-5.0) g/dL Globulin (1.7-4.1) g/dL Albumin/Globulin Ratio (1.0-2.8) Lipase (23-300) U/L CA 125 Antigen (0-35) U/mL Urine Color Yellow Urine Appearance Sl cloudy Urine pH 5.5 (4.5-8.0) Ur Specific [place] 1.020 (1.000-1.035) Urine Protein Negative (Negative) Urine Glucose (UA) Negative (Negative) g/dL Urine Ketones Negative (NEGATIVE) Urine Occult Blood 1+ H (Negative) Urine Nitrate Negative (Negative) Urine Bilirubin Negative (NEGATIVE) Urine Urobilinogen 0.2 (0.2) E.U./dL Ur Leukocyte Esterase 2+ H (NEGATIVE) Urine RBC 1-5/hpf (0-5/HPF) Urine WBC 10-30/hpf H (0-5/HPF) Ur Squamous Epith Cells 1-5 /hpf (0-5/HPF) Amorphous Sediment 1+ Urine Bacteria Moderate (10-30) H (None) Urine Mucus 1+ H (Negative) Ur Culture Indicated? Specimen cultured SARS-CoV-2 (PCR) Negative (Negative) Imaging Data CT scan - abdomen/pelvis: Radiologist's Impression: Close Pelvis Ultrasound (Signed) Nick Simpson - 07/03/22 Abdomen/Pelvis CT (Signed) Nick Simpson - 07/03/22 Chest X-Ray (Signed) Baljeet Palumbo - 07/03/22 Chest X-Ray (Signed) Eliza Nolan - 04/23/22 Launch?[place] [address] CT Scan Report Signed Patient: Liudmila Major MR#: [id number] : 1965 Acct:[id number] Age/Sex: 57 / F Date of Service: 07/03/22 Loc: ED Accession Number: [id number] ?? Procedure: CT abdomen pelvis w con Ordering Provider: Jefry Solomon P.A-C PROCEDURE:? CT ABDOMEN PELVIS W CON ? INDICATIONS:? Abdominal pain ? TECHNIQUE:? After the administration of IV contrast, axial sections were acquired from the lung bases to the pubic symphysis.? Coronal and sagittal reformats were performed.? For r adiation dose reduction, the following was used:? automated exposure control, adjustment of mA and/or kV according to patient size. ? COMPARISON:? None. ? FINDINGS:? Image quality:? Excellent.? ? Lung bases:? There is minimal dependent atelectasis.? There is a small hiatal hernia.? Bilateral breast implants are partially visualized. Heart:? Heart is normal in size.? ? ? ABDOMEN: Liver:? There are few scattered hypodense foci in the liver which are too small to characterize but statistically likely represent cysts.? Mild focal fatty infiltration is also demonstrated anteriorly in the left hepatic lobe. Gallbladder:? Within normal limits without calcified gallstones.? ? Biliary ducts:? No biliary ductal dilatation.? ? Pancreas:? Unremarkable.? ? Spleen:? Normal in size.? ? Adrenal Glands:? No adrenal nodules.? ? Kidneys and Ureters:? No hydronephrosis.? ? ? Stomach and Bowel:? Stomach, small bowel loops, and colon are normal in caliber and wall thickness.? The appendix is distended with fluid, measuring up to 1.1 cm.? There is associated mild wall thickening and enhancement as well as mild periappendiceal fat stranding.? The findings are consistent with developing acute appendicitis.? There are surgical sutures in the sigmoid colon.? Peritoneum:? No abnormal intraperitoneal fluid.? No free air.? ? Ventral Wall: ? No hernia.? Abdominal Nodes:? No retroperitoneal or mesenteric adenopathy by size criteria.? Vessels:? Aorta and inferior vena cava are normal in size.? ? PELVIS: Pelvic Organs:? There is a large thin-walled bilobed septated left ovarian cyst or 2 adjacent cysts measuring up to 9.7 cm in craniocaudal dimension. Bladder:? Unremarkable.? ? Pelvic Nodes: No enlarged lymph nodes.? Miscellaneous: No inguinal hernias are seen. ? ? ? Bones:? Visualized osseous structures demonstrate no suspicious focal lesions. ? IMPRESSION:? ? 1.? Findings consistent with acute appendicitis.? No evidence of perforation. ? 2. Large bilobed septated left ovarian cyst there are 2 adjacent cysts measuring up to 9.7 cm in aggregate dimension.? Recommended for further evaluation with u ltrasound.? Patient may be at risk for ovarian torsion.? A cystic ovarian neoplasm is also not excluded. ? Findings discussed with Dr. Bowden on 07/03/2022 at 8:30 p.m..? ? ? Dictated by: Nick Simpson M.D. on 07/03/2022 at 20:27 ? ? Approved by: Nick Simpson M.D. on 07/03/2022 at 20:34 ? US - LICENSED LOAN OFFICER: Radiologist's Impression: Liudmila Major??57??F??1965 ? Allergy/Adv: Penicillins Close Pelvis Ultrasound (Signed) Nick Simpson - 07/03/22 Abdomen/Pelvis CT (Signed) Nick Simpson - 07/03/22 Chest X-Ray (Signed) Baljeet Palumbo - 07/03/22 Chest X-Ray (Signed) Eliza Nolan - 04/23/22 [place] [address] Ultrasound Report Signed Patient: Liudmila Major MR#: [id number] : 1965 Acct:[id number] Age/Sex: 57 / F Date of Service: 07/03/22 Loc: 212-1 Accession Number: [id number] ?? Procedure: US pelvic complete Ordering Provider: Neo Bowden D.O. PROCEDURE:? US PELVIC COMPLETE ? INDICATIONS:? severe LLQ pain, large ovary on CT ? TECHNIQUE:? Real-time scanning was performed of the pelvic organs, with image documentation.? Additional endovaginal scanning was necessary due to incomplete visualization of the adnexal and endometrial structures by transabdominal scanning.? ? COMPARISON:? [facility], CT, CT ABDOMEN PELVIS W CON, 07/03/2022, 19:19. ? FINDINGS:? ?? Uterus:? Uterus is anteverted and measures 6.6 x 3.3 x 5.2 cm.? The endometrium measures up to 0.6 cm in thickness.? There is a right anterior intramural fibroid measuring 2.1 x 1.8 x 2.1 cm. ? Ovaries:? The right ovary measures 1.9 x 1.9 x 1.9 cm, with a calculated ovarian volume of 3.6 cc.? There is patent arterial and venous flow demonstrated within the right ovary. ?There is a lobulated cystic collection in the left adnexa with a thin internal septation measuring up to approximately 9.5 cm.? The left ovary is otherwise not discretely visualized separately.? There is up to flow demonstrated within the cyst wall and internal septation. ? Other:? No pathologic free abdominal or pelvic fluid. ? ? IMPRESSION:? ? 1. Lobulated septated cyst in the left adnexa demonstrated corresponding to the finding on CT.? The left ovary is otherwise not discretely visualized.? The findings are suggestive of a large ovarian cyst and a cystic neoplasm cannot be excluded.? Given its size, patient may be at risk for ovarian torsion.? The imaging differential includes hydrosalpinx. ? 2. Right anterior intramural fibroid measuring up to 2.1 cm. ? ? ? We strive to produce accurate, complete, and clear reports of imaging services. To assist us in improving patient care, this report was composed using standard report templates and voice recognition software. Therefore, it may contain abnormal punctuation, insertions and/or omissions. Occasional wrong-word or sound-alike substitutions may occur. Though we review the report and make efforts to correct it, we do recommend that the report be read carefully in proper context to recognize any text inaccuracies. ? ? Dictated by: Nick Simpson M.D. on 07/03/2022 at 23:37 ? ? Approved by: Nick Simpson M.D. on 07/03/2022 at 23:43 ? Discharge Plan Departure Patient Disposition: Admitted As Inpatient Clinical Impression: Acute appendicitis, Ovarian cyst Admit Date/Time: 07/03/22 21:11 Admit Provider: Miki Barclay
[2022-07-03] MEDS: MORPHINE 4 MG/ML INJ IV (19:11)
--- NOTE | 2022-07-03 19:18 | PC.NURSE ---
Pt unable to sit still at this time. Radiology delayed while pt remains in pain and is actively vomiting.
--- NOTE | 2022-07-03 19:29 | CM.SWNOTE ---
Addendum entered by Dede Suarez 07/03/22 20:21: [employer] Note [employer] enters room to meet with patient. Patient endorses that she moved here from [place] about a year ago. Patient does not have a PCP and current has [place] Medicaid insurance. Patient endorses hx of NSTEMI and kidney stones. Patient endorses that she resides in her car and feels safe. Patient endorses she is employed by [employer]. Patient endorses that she is saving money to find a place to live. [employer] provides patient with housing resources and state insurance resources. Registration informs [employer] SEAL that will need a state ID prior to setting up state medicaid insurance. [employer] informs this to patient. [employer] SE[employer] to f/u with patient after the long weekend to inquire about patient establishing state ID. [employer] support patient in signing up for state insurance and to set up PCP ED f/u for patient when insurance is established. Plan: [employer] to f/u with patient via phone to support patient with PCP establishment and state insurance. LYNNE Alvarez Original Note: [employer] SEAL Note [employer] SEAL receives consult for patient due to patient's report in triage of housing insecurity. At this time patient is distracted by her high level of pain and nausea. Patient is 57 y/o female who presents to ED due to concern for abdominal pain. [employer] to attempt to meet with patient prior to d/c, [employer] also provides housing resources to patient's RN to give to patient upon d/c. LYNNE Alvarez
[2022-07-03 20:10] LABS: Appearance Urine UA SL CLOUDY; Bilirubin Urine UA NEGATIVE (NEGATIVE); Color Urine UA YELLOW; Glucose Urine UA NEGATIVE (Negative); Ketones Urine UA NEGATIVE (NEGATIVE); Leukocyte Esterase Urine UA 2+ (NEGATIVE); Nitrite Urine UA NEGATIVE (Negative); Occult Blood Urine UA 1+ (Negative); Protein Urine UA NEGATIVE (Negative); Urobilinogen Urine UA 0.2 E.U./dL (0.2)
[2022-07-03 20:11] LABS: pH Urine UA 5.5 (4.5-8.0)
[2022-07-03 20:18] LABS: Amorphous Sediment Urine 1+; Bacteria Urine Moderate (10-30); Culture Indicated Urine Specimen Cultured; Mucus Urine 1+ (Negative); RBC Urine 1-5/HPF (0-5/HPF); Squamous Epithelial Cell Urine 1-5 /HPF (0-5/HPF); WBC Urine 10-30/HPF (0-5/HPF)
--- NOTE | 2022-07-03 20:57 | DI.US.S_ITS ---
PROCEDURE: US PELVIC COMPLETE INDICATIONS: severe LLQ pain, large ovary on CT TECHNIQUE: Real-time scanning was performed of the pelvic organs, with image documentation. Additional endovaginal scanning was necessary due to incomplete visualization of the adnexal and endometrial structures by transabdominal scanning. COMPARISON: [facility], CT, CT ABDOMEN PELVIS W CON, 07/03/2022, 19:19. FINDINGS: Uterus: Uterus is anteverted and measures 6.6 x 3.3 x 5.2 cm. The endometrium measures up to 0.6 cm in thickness. There is a right anterior intramural fibroid measuring 2.1 x 1.8 x 2.1 cm. Ovaries: The right ovary measures 1.9 x 1.9 x 1.9 cm, with a calculated ovarian volume of 3.6 cc. There is patent arterial and venous flow demonstrated within the right ovary. There is a lobulated cystic collection in the left adnexa with a thin internal septation measuring up to approximately 9.5 cm. The left ovary is otherwise not discretely visualized separately. There is up to flow demonstrated within the cyst wall and internal septation. Other: No pathologic free abdominal or pelvic fluid. IMPRESSION: 1. Lobulated septated cyst in the left adnexa demonstrated corresponding to the finding on CT. The left ovary is otherwise not discretely visualized. The findings are suggestive of a large ovarian cyst and a cystic neoplasm cannot be excluded. Given its size, patient may be at risk for ovarian torsion. The imaging differential includes hydrosalpinx. 2. Right anterior intramural fibroid measuring up to 2.1 cm. We strive to produce accurate, complete, and clear reports of imaging services. To assist us in improving patient care, this report was composed using standard report templates and voice recognition software. Therefore, it may contain abnormal punctuation, insertions and/or omissions. Occasional wrong-word or sound-alike substitutions may occur. Though we review the report and make efforts to correct it, we do recommend that the report be read carefully in proper context to recognize any text inaccuracies. Dictated by: Nick Simpson M.D. on 07/03/2022 at 23:37 Approved by: Nick Simpson M.D. on 07/03/2022 at 23:43
[2022-07-03] MEDS: PIPERACILLIN/TAZO 4.5 GM in SODIUM CHLORIDE 0.9% 100 ML IV (21:10)
[2022-07-03 21:29] LABS: COVID19 -Nasal RAPID Negative (Negative)
[2022-07-03 22:41] LABS: Cancer Antigen 125 7.8 U/mL (0-35)
[2022-07-04] MEDS: SODIUM CHLORIDE 0.9% 1,000 ML 100 ML IV (00:20)
[2022-07-04] MEDS: metroNIDAZOLE 500 MG/100 ML PIGGYBACK 100 MG IV ×3 (00:20→12:31)
[2022-07-04] MEDS: CIPROFLOXACIN 400 MG/200 ML PIGGYBACK 200 MG IV ×2 (00:20→09:51)
[2022-07-04 00:24] VITALS: BP 96/54; PULSE 60; RESP 17; TEMP 36.3; O2SAT 96
[2022-07-04 04:59] VITALS: BP 146/69; PULSE 86; RESP 18; TEMP 36.7; O2SAT 94
[2022-07-04] MEDS: OXYCODONE IR 5 MG TABLET PO (07:43)
[2022-07-04 07:52] VITALS: BP 91/52; PULSE 58; RESP 16; TEMP 36.3; O2SAT 99
[2022-07-04 09:00] VITALS: O2SAT 98
[2022-07-04 09:10] LABS: Add Manual Diff / Slide Review NO; Basophils Absolute Auto 100 /uL (0-100); Basophils Percent Auto 0.6 % (0-2); Eosinophils Absolute Auto 100 /uL (0-450); Eosinophils Percent Auto 1.2 % (2-4); Hemoglobin 12.8 g/dL (12.0-16.0); Lymphocytes Absolute Auto 1600 /uL (1100-4500); Lymphocytes Percent Auto 18.5 % (25-40); Mean Corpuscular HGB Conc 33.6 % (30-36); Mean Corpuscular Hemoglobin 30.3 PG (26-34); Mean Corpuscular Volume 90.1 fL (80-100); Monocytes Absolute Auto 700 /uL (0-900); Monocytes Percent Auto 7.9 % (3-14); Neutrophils Absolute Auto 6300 /uL (1500-7000); Neutrophils Percent Auto 71.8 % (50-75); Platelet Count 313 X10^3/uL (150-400); Red Blood Cell Count 4.21 X10^6/uL (4.0-5.2); Red Cell Distribution Width 14.2 % (11.6-14.8); White Blood Cell Count 8.8 X10^3/uL (4.5-11.0)
--- NOTE | 2022-07-04 10:55 | PM.HP.1 ---
History of Present Illness History of Present Illness Date Patient Seen: 07/04/22 Time Patient Seen: 11:15 Chief complaint: Severe lower ABD pain Narrative: 57-year-old woman admitted to the hospital for management of acute appendicitis and a left ovarian cyst. For she presented to the emergency room with 1 day of worsening lower abdominal pain. No nausea vomiting or fever. At admission she is afebrile WBC 18. CT abdomen pelvis demonstrates acute non perforated appendicitis without fecalith and a 10 cm left ovarian cyst. 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 Patient History Medical History (Updated 07/04/22 @ 11:17 by Miki Barclay MD) Colostomy in place Healthy adult Traumatic perforation of rectum Surgical History (Updated 07/04/22 @ 11:17 by Miki Barclay MD) History of colostomy reversal Family & Social History Social History: Prior Living Arrangements RV Safety & Behavioral: Feels Safe in Current Yes Environment Been Physically Hurt or No Threatened By a Person Tobacco & Substance use: Smoking Status Never smoker alcohol intake frequency 0-2 drinks per day Substance Use Type does not use Meds Home Medications and Allergies Allergies Allergy/AdvReac Type Severity Reaction Status Date / Time Penicillins Allergy Rash Verified 07/03/22 16:41 Exam Vital Signs (past 8 hours): - 07/04/22 04:59 07/04/22 07:52 07/04/22 09:00 Temperature 98.1 F 97.3 F L Pulse Rate 86 58 L Respiratory Rate 18 16 Blood Pressure 146/69 H 91/52 L Pulse Oximetry 94 99 98 Oxygen Delivery Method Room Air Oxygen Flow Rate 0 0 0 Oxygen Delivery Method Room Air Oxygen Flow Rate 0 Narrative Exam Narrative: General adult woman alert oriented no acute distress Chest nonlabored respiration Abdomen soft non tender right and left lower quadrant. No peritonitis. Objective Labs Result Diagrams: 07/04/22 08:55 07/03/22 17:17 Labs: Laboratory Results - last 24 hr 07/03/22 07/03/22 07/03/22 17:17 17:17 17:17 WBC 17.9 H RBC 4.73 Hgb 14.3 Hct 42.5 MCV 89.8 MCH 30.2 MCHC 33.6 RDW 14.0 Plt Count 377 Neut % (Auto) 83.5 H Lymph % (Auto) 10.7 L [place] % (Auto) 4.8 Eos % (Auto) 0.6 L Baso % (Auto) 0.4 Neut # (Auto) 26286 H Lymph # (Auto) 1900 [place] # (Auto) 900 Eos # (Auto) 100 Baso # (Auto) 100 Sodium 137 Potassium 3.7 Chloride 105 Carbon Dioxide 24 BUN 12 Creatinine 0.53 Estimated GFR > 60 BUN/Creatinine Ratio 22.6 H Glucose 115 H Calcium 8.8 Total Bilirubin 0.6 AST 20 ALT 14 Alkaline Phosphatase 99 Total Protein 7.7 Albumin 4.5 Globulin 3.2 Albumin/Globulin Ratio 1.4 Lipase 62 CA 125 Antigen 7.8 Urine Color Urine Appearance Urine pH Ur Specific [place] Urine Protein Urine Glucose (UA) Urine Ketones Urine Occult Blood Urine Nitrate Urine Bilirubin Urine Urobilinogen Ur Leukocyte Esterase Urine RBC Urine WBC Ur Squamous Epith Cells Amorphous Sediment Urine Bacteria Urine Mucus Ur Culture Indicated? SARS-CoV-2 (PCR) 07/03/22 07/03/22 07/04/22 20:01 21:00 08:55 WBC 8.8 D RBC 4.21 Hgb 12.8 Hct 38.0 MCV 90.1 MCH 30.3 MCHC 33.6 RDW 14.2 Plt Count 313 Neut % (Auto) 71.8 Lymph % (Auto) 18.5 L [place] % (Auto) 7.9 Eos % (Auto) 1.2 L Baso % (Auto) 0.6 Neut # (Auto) 6300 Lymph # (Auto) 1600 [place] # (Auto) 700 Eos # (Auto) 100 Baso # (Auto) 100 Sodium Potassium Chloride Carbon Dioxide BUN Creatinine Estimated GFR BUN/Creatinine Ratio Glucose Calcium Total Bilirubin AST ALT Alkaline Phosphatase Total Protein Albumin Globulin Albumin/Globulin Ratio Lipase CA 125 Antigen Urine Color Yellow Urine Appearance Sl cloudy Urine pH 5.5 Ur Specific [place] 1.020 Urine Protein Negative Urine Glucose (UA) Negative Urine Ketones Negative Urine Occult Blood 1+ H Urine Nitrate Negative Urine Bilirubin Negative Urine Urobilinogen 0.2 Ur Leukocyte Esterase 2+ H Urine RBC 1-5/hpf Urine WBC 10-30/hpf H Ur Squamous Epith Cells 1-5 /hpf Amorphous Sediment 1+ Urine Bacteria Moderate (10-30) H Urine Mucus 1+ H Ur Culture Indicated? Specimen cultured SARS-CoV-2 (PCR) Negative Assessment & Plan Assessment and plan (1) Acute appendicitis: Status: Acute (2) Ovarian cyst: Status: Acute Assessment & Plan narrative: 57-year-old woman with a history of complex abdominal surgery who presents with acute uncomplicated appendicitis and a large left ovarian cyst. I reviewed her CT abdomen pelvis which demonstrates acute appendicitis without fecalith or perforation. In addition she has a 10 cm left ovarian cyst. In regards to the appendicitis given her history of traumatic rectal perforation with subsequent colostomy and colostomy reversal she has a significant risk of surgical morbidity. Given the choice between conservative management with antibiotic therapy or appendectomy I recommended that we proceed with antibiotic therapy. I discussed this with her and she understands that there is a risk of recurrent appendicitis. In regards to the left ovarian cyst this is chronic in nature and there does not appear to be evidence of ovarian torsion, she may follow-up with gynecology as an outpatient. Time Spent With Patient Critical Care time: I spent a total of [] minutes of critical care time on this patient's care today; this time is exclusive of procedural time.
--- NOTE | 2022-07-04 11:30 | PM.CALLCOV.1 ---
Call Coverage Note Note Date of Patient Contact: 07/04/22 Time of Patient Contact: 11:30 Narrative of Care Provided: 57-year-old woman with acute uncomplicated appendicitis and a chronic left ovarian cyst who is admitted to the hospital for management of appendicitis. Complex abdominal surgical history is being treated with antibiotic therapy. Since admission her pain has entirely resolved and her leukocytosis has resolved from 18 to 8 today. She is tolerating a diet and she may discharge home on 1 week of Augmentin. Follow-up with surgery and Gynecology.
[2022-07-04] MEDS: ONDANSETRON 4 MG ODT SL (12:07)
--- NOTE | 2022-07-04 12:10 | CM.DANOTE ---
Initial Discharge Assessment Note: Met with patient, introduced self and role. Payer: Welfare out of state and self pay. No PCP in area. 57 year old female admitted yesterday with severe lower ABD pain and was dx'd with appendicitis. She has been treated here with antibiotics. She moved here from [facility] where her daughter lives and is close with her she states. She located to [place] to look for a job and find housing and is currently living in her car. Dr Barclay has written discharge orders for today with oral antibiotics and to follow up with gynecology for an ovarian cyst. Plan: Patient will return to prior living situation in her car. [facility]ETRA Discharge Planning/Care Management CM Discharge Assessment Start: 07/04/22 12:08 Freq: Status: Active Protocol: Document 07/04/22 12:09 (Rec: 07/04/22 12:09 [id number]) Discharge Planning Assessment Assigned Supervisor [employer] Beverley Lawrence RN/DCP Advance Directives? No History Provided By Patient Prior Living Arrangements RV Comment CAR Household Members none Type of transporation used prior to Drives own vehicle admit Independent with ADL's Yes Is patient alert and oriented? Yes Caregiver for Another No Barriers to Discharge No Referrals Initiated None needed Review Status In Process Next Review Type Continued Stay Review
[2022-07-04 13:00] VITALS: BP 121/67; PULSE 66; RESP 16; TEMP 36.1; O2SAT 96; O2SAT 98
== END 2022-07-04 15:22 | disposition home or self-care (01) ==
LOC: ED 20:07 → AC 21:12
PROVIDERS: Emergency Medicine; Physician Assistant; Admitting Provider Surgery; Emergency Provider Emergency Medicine; Referring Provider Emergency Medicine; Visit Provider Surgery
DX: K35.80 Unspecified acute appendicitis (principal); N83.202 Unspecified ovarian cyst, left side; Z20.822 Contact with and (suspected) exposure to COVID-19
CPT/HCPCS: 36415; 71046; 74177; 76830; 76856; 80053; 81001; 83690; 85025; 86304; 87077; 87086; 87186; 87635; 93005; 93976; 96365; 96366; 96368; 96374; 96375; 96376; 99225; 99284; C9803; G0378; J0744; J1885; J2270; J2405; J2543; Q9967

== ENCOUNTER 2024-05-03 05:12 | Observation (INO) | payer SELFPAY ==
[2022-07-03 21:16] VITALS: BMI 25.0
[2024-05-03] VITALS (36 sets, daily range): BP systolic 106–181; BP diastolic 55–83; PULSE 60–107; RESP 12–24; TEMP 36.2–36.6; O2SAT 97–100; BMI 23.4
--- NOTE | 2024-05-03 | PATH_ITS ---
[facility] Accession Number: [id number] No. of containers..01 Tissue . 01 Material submitted: . appendix - APPENDIX . 01 Diagnosis: APPENDIX, APPENDECTOMY: Acute appendicitis with serositis; please see comment. Negative for dysplasia and malignancy. [facility] 05/10/2024 1007 Local . 01 Comment: A full thickness defect is present at the distal appendiceal tip; however, it is not associated with neutrophilic activity. Correlation with surgical findings recommended. . 01 Electronically signed: . Renetta Luque MD, Pathologist NPI- [id number] . 01 Gross description: . Received in formalin with two identifiers and appendix, is a thomas vermiform appendix 5.5 cm in length and up to 1.1 cm in diameter. The serosa is thomas and smooth with a full thickness defect at the distal tip 0.4 cm in greatest dimension. The margin is inked blue and the mesoappendix extends out to 1.7 cm. The lumen contains brown solid fecal material and ranges from 0.3 to 0.9 cm in greatest dimension. The laura average 0.3 cm thick with no lesions identified. Alcohol [employer] Operator sections to include the margin, one-half of the bisected distal tip with defect and cross-section are submitted in cassette A1. ([id number]) . The second half of the bisected distal tip is submitted in cassette A2. ([id number]) /[facility] 05/09/2024 0900 Local . 01 Pathologist provided ICD-10: K35.80 . 01 CPT . 793392 Specimen Comment: A courtesy copy of this report has been sent to [phone] Performed at: [address] [address], [place], [place] [id number] MD Nick Munoz MD Phone: [phone]
--- NOTE | 2024-05-03 05:31 | DI.CT.S_ITS ---
PROCEDURE: CT ABDOMEN PELVIS W CON INDICATIONS: lower ab pain TECHNIQUE: After the administration of intravenous contrast, axial sections acquired from the lung bases to the pubic symphysis. Coronal and sagittal reformats were performed. For radiation dose reduction, the following was used: automated exposure control, adjustment of mA and/or kV according to patient size. COMPARISON: US, US PELVIC COMPLETE, 07/03/2022, 21:26. [facility], CT, CT ABDOMEN PELVIS W CON, 07/03/2022, 19:19. FINDINGS: Image quality: Diagnostic. Lower Chest: No significant findings. ABDOMEN: Liver: No solid mass. Scattered simple hepatic cysts. Gallbladder: No radiopaque gallstones or wall thickening. Biliary ducts: No biliary dilation. Pancreas: No ductal dilation. Spleen: Size is within normal limits. Adrenal Glands: No adrenal nodules. Kidneys and Ureters: No hydronephrosis. No solid mass. No complex renal cystic lesion which requires follow up. Stomach and Bowel: No obstruction. Appendix is enlarged measuring approximately 1.8 cm with appendicoliths. It is noted appearance of appendicitis was present in on exam in 2021. . No evidence of perforation. There is also enlarged cystic/fluid appearance within the appendix which has developed since 2021. Postsurgical changes reflecting partial colectomy. Peritoneum: No abnormal intraperitoneal fluid. No free air. Ventral Wall: No significant ventral hernia. Abdominal Nodes: No retroperitoneal or mesenteric adenopathy by size criteria. Vessels: Aorta and inferior vena cava are normal in size. PELVIS: Pelvic Organs: As identified previously, cystic structure within the left ovary is present relatively unchanged measuring approximately 5.5 cm. Bladder: No bladder wall thickening, accounting for underdistention. Pelvic Nodes: No enlarged lymph nodes. Miscellaneous: No inguinal hernias are seen. Bones: No aggressive osseous abnormality. IMPRESSION: Enlarged appendix with appendicoliths inflammatory change consistent with appendicitis. Given interval development of fluid/cystic appearance in the appendix, mucocele cannot be excluded. Stable appearance of presumed large left ovarian cyst. The above findings are concordant with preliminary report. Dictated by: Eliza Nolan M.D. on 05/03/2024 at 8:39 Approved by: Eliza Nolan M.D. on 05/03/2024 at 8:49
--- NOTE | 2024-05-03 05:35 | ED.ABDPAIN ---
HPI - Abdominal Pain General Chief Complaint: Abdominal Pain Stated Complaint: dizziness, shakiness, nausea Time Seen by Provider: 05/03/24 05:20 Source: patient Mode of arrival: Ambulatory History of Present Illness HPI narrative: Patient is a 59-year-old female history NSTEMI, in previous appendicitis without surgery presenting today with all over abdominal pain body aches and chills. It has been ongoing for about the last 3 days. She walked over urine started feeling a little bit dizzy. She denies any chest pain or cough. No painful frequent urination. She has had kidney stones before but denies any sort of pain. She has no nausea vomiting or change in bowel habits. She has not taken anything for pain. 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 HEENT: Head atraumatic,EOMI, pupils reactive, face symmetric, [moist] mucous membranes CARDIOVASCULAR: Regular rate and rhythm without murmurs, rubs or gallops. RESPIRATORY: Breath sounds equal bilaterally, no wheezes rales or rhonchi. ABDOMEN: Soft, nontender. Normoactive bowel sounds all 4 quadrants. No guarding or rebound. : No CVA tenderness EXTREMITIES: Normal range of motion, no clubbing or edema. Neurovascularly intact NEUROLOGICAL: Alert and oriented x4.Normal gait and speech. SKIN: Warm, dry, no laceration, no petechiae, no rashes or lesions. Course Orders Ordered: Acetaminophen (Acetaminophen 325 Mg Tablet) 650 mg PO Q6H [facility] Last Admin: 05/03/24 21:27 Dose: 650 mg Documented By: Admin: 05/03/24 18:00 Dose: Not Given Documented By: Admin: 05/03/24 09:55 Dose: Not Given Documented By: SPF Hydrocodone Bitart/Acetaminophen (Hydrocodone/Acet 5/325 Tablet) 1 tab PO Q6HR PRN PRN Reason: Pain, Moderate (4-6) Hydrocodone Bitart/Acetaminophen (Hydrocodone/Acet 10/325 Tablet) 1 tab PO Q6HR PRN PRN Reason: Pain, Severe (7-10) Celecoxib (Celecoxib 200 Mg Capsule) 200 mg PO BID [facility] Last Admin: 05/03/24 21:26 Dose: 200 mg Documented By: Admin: 05/03/24 09:55 Dose: Not Given Documented By: SPF Dexamethasone (Dexamethasone 10 Mg/Ml Vial) 8 mg IV NOW PRN PRN Reason: Nausea And Vomiting Fentanyl (Fentanyl 100 Mcg/2 Ml Inj) 0 mcg IV Q5MIN PRN PRN Reason: Pain, Severe (7-10) Fentanyl (Fentanyl 100 Mcg/2 Ml Inj) 0 mcg IV Q5M PRN PRN Reason: Pain, Moderate (4-6) Gabapentin (Gabapentin 300 Mg Capsule) 300 mg PO TID [facility] Last Admin: 05/03/24 21:26 Dose: 300 mg Documented By: Admin: 05/03/24 15:37 Dose: Not Given Documented By: Admin: 05/03/24 09:55 Dose: Not Given Documented By: SPF Hydromorphone HCl (Hydromorphone 1 Mg Inj) 0 mg IV Q5MIN PRN PRN Reason: Pain, Mild (1-3) Hydromorphone HCl (Hydromorphone 1 Mg Inj) 0 mg IV Q5MIN PRN PRN Reason: Pain, Moderate (4-6) Ciprofloxacin (Cipro) 200 mg in 100 mls @ 100 mls/hr IV Q12H [facility] Last Infusion: 05/03/24 21:02 Dose: Infused Documented By: Admin: 05/03/24 20:02 Dose: 100 mls/hr Documented By: Infusion: 05/03/24 10:37 Dose: Infused Documented By: Infusion: 05/03/24 09:45 Dose: 100 mls/hr Documented By: Infusion: 05/03/24 09:35 Dose: 0 mls/hr Documented By: Admin: 05/03/24 09:08 Dose: 100 mls/hr Documented By: KRISTIAN Metoclopramide HCl (Metoclopramide 10 Mg/2 Ml Inj) 10 mg IV NOW PRN PRN Reason: Nausea And Vomiting Morphine Sulfate (Morphine 2 Mg/Ml Inj) 2 mg IV Q3HR PRN PRN Reason: Pain, Moderate (4-6) Last Admin: 05/03/24 19:29 Dose: 2 mg Documented By: Admin: 05/03/24 14:43 Dose: 2 mg Documented By: Admin: 05/03/24 09:36 Dose: 2 mg Documented By: KRISTIAN Naloxone HCl (Naloxone 0.4 Mg/Ml Vial) 0.2 mg IV Q2MIN PRN PRN Reason: Opiate Reversal Ondansetron HCl (Ondansetron 4 Mg/2 Ml Inj) 4 mg IV Q4HR PRN PRN Reason: Nausea And Vomiting Last Admin: 05/03/24 08:40 Dose: 4 mg Documented By: SPF Ondansetron HCl (Ondansetron 4 Mg/2 Ml Inj) 4 mg IV NOW PRN PRN Reason: Nausea And Vomiting Oxycodone HCl (Oxycodone Ir 5 Mg Tablet) 5 mg PO PACUNOW PRN PRN Reason: Mild or moderate pain Sodium Chloride (Sodium Chloride 0.9% Flush) 10 ml IV BID [facility] Last Admin: 05/03/24 21:26 Dose: 10 ml Documented By: Discontinued Medications Acetaminophen (Acetaminophen 325 Mg Tablet) 650 mg PO Q6H [facility] Last Admin: 05/03/24 07:29 Dose: Not Given Documented By: MELBA Bupivacaine HCl 30 ml/ (Epinephrine HCl 0.15 mg) 0 ml INJ NOW ONE Stop: 05/03/24 12:30 Last Admin: 05/03/24 12:29 Dose: 30 ml Documented By: MALA Sodium Chloride (Normal Saline 0.9%) 1,000 mls @ 1,000 mls/hr IV BOLUS ONE Stop: 05/03/24 06:30 Last Infusion: 05/03/24 06:45 Dose: Infused Documented By: Admin: 05/03/24 05:45 Dose: 1,000 mls/hr Documented By: KOJO Metronidazole (Flagyl) 500 mg in 100 mls @ 100 mls/hr IV NOW ONE Stop: 05/03/24 07:58 Last Infusion: 05/03/24 08:23 Dose: Infused Documented By: Admin: 05/03/24 07:17 Dose: 100 mls/hr Documented By: MELBA Lactated Ringer's (Lactated Ringers) 1,000 mls @ 100 mls/hr IV CONT [facility] Last Infusion: 05/03/24 10:37 Dose: 100 mls/hr Documented By: Infusion: 05/03/24 09:08 Dose: 0 mls/hr Documented By: Admin: 05/03/24 07:34 Dose: 100 mls/hr Documented By: MELBA Ketorolac Tromethamine (Ketorolac 30 Mg/Ml Vial) 15 mg IV NOW ONE Stop: 05/03/24 05:32 Last Admin: 05/03/24 05:45 Dose: 15 mg Documented By: KOJO Ondansetron HCl (Ondansetron 4 Mg/2 Ml Inj) 4 mg IV NOW ONE Stop: 05/03/24 05:32 Last Admin: 05/03/24 05:45 Dose: 4 mg Documented By: KOJO Scopolamine (Scopolamine 1 Patch) 1 patch TOP NOW ONE Stop: 05/03/24 07:14 Last Admin: 05/03/24 07:36 Dose: Not Given Documented By: MELBA Scopolamine (Scopolamine 1 Patch) 1 patch TOP NOW ONE Stop: 05/03/24 09:36 Last Admin: 05/03/24 09:35 Dose: 1 patch Documented By: KRISTIAN Vital Signs Vital signs: Vital Signs - 8 hr 07/03/24 05:21 Temperature 97.4 F L Pulse Rate 107 H Respiratory Rate 20 Blood Pressure 144/83 H Pulse Oximetry 99 Oxygen Delivery Method Room Air MDM - Abdominal Pain Lab Data 05/03/24 05:30 05/03/24 05:30 Labs: Lab Results 05/03/24 Range/Units 05:30 WBC 14.3 H (4.5-11.0) X10^3/uL RBC 4.83 (4.0-5.2) X10^6/uL Hgb 14.7 (12.0-16.0) g/dL Hct 43.8 (36-46) % MCV 90.6 (80-100) fL MCH 30.5 (26-34) PG MCHC 33.7 (30-36) % RDW 14.0 (11.6-14.8) % Plt Count 398 (150-400) X10^3/uL Neut % (Auto) 82.4 H (50-75) % Lymph % (Auto) 11.0 L (25-40) % [place] % (Auto) 5.5 (3-14) % Eos % (Auto) 0.8 L (2-4) % Baso % (Auto) 0.3 (0-2) % Neut # (Auto) 80731 H (3152-6491) /uL Lymph # (Auto) 1600 (3023-7491) /uL [place] # (Auto) 800 (0-900) /uL Eos # (Auto) 100 (0-450) /uL Baso # (Auto) 0 (0-100) /uL Sodium 141 (137-145) mmol/L Potassium 4.0 (3.4-5.1) mmol/L Chloride 105 (98-107) mmol/L Carbon Dioxide 31 (22-32) mmol/L BUN 10 (7-17) mg/dL Creatinine 0.57 (0.52-1.04) mg/dL Estimated GFR > 60 (>60) mL/min BUN/Creatinine Ratio 17.5 (6-22) Glucose 142 H (70-100) mg/dL Calcium 9.2 (8.4-10.2) mg/dL Total Bilirubin 0.8 (0.2-1.3) mg/dL AST 49 H (14-36) IU/L ALT 41 H (<35) IU/L Alkaline Phosphatase 94 (38-126) U/L Total Creatine Kinase 456 H (30-135) U/L Troponin I < 0.012 (0.01-0.034) ng/mL Total Protein 7.6 (6.3-8.2) g/dL Albumin 4.6 (3.5-5.0) g/dL Globulin 3.0 (1.7-4.1) g/dL Albumin/Globulin Ratio 1.5 (1.0-2.8) Lipase 107 (23-300) U/L Point of care testing: Urine Dip Bedside Urine Glucose Negative Bedside Urine Bilirubin - Negative Bedside Urine Ketone - Negative Urine Specific [place] 1.005 Bedside Urine Occult Blood - Negative Bedside Urine pH 7.5 Bedside Urine Protein - Negative Bedside Urine Urobilinogen - Negative Bedside Urine Nitrite - Negative Bedside Urine Leukocytes - Negative Esterase Imaging Data CT scan - abdomen/pelvis: Radiologist's Impression: Preliminary report acute appendicitis can not exclude possibility of mucocele ECG Data Attestation: I personally reviewed and interpreted this ECG as follows: Interpretation: Normal sinus rhythm rate 89 MA interval 134 QRS QTC 486 Q-waves noted in septal leads V1 and V2 similar to previous EKGs [place] [address] depression or T-wave inversion no ST elevations MDM Narrative Medical decision making narrative: Patient 79-year-old female presents today with a variety of symptoms including abdominal pain and dizziness. She has had some body aches as well Blood work has been reviewed she does have some leukocytosis of 14.3 no anemia, electrolytes are stable creatinine 0.51 glucose 142, troponin negative bilirubin 0.8 AST 49 ALT [address] abdomen pelvis Patient is feeling better after IV fluids and Toradol she has absolutely no chest pain or palpitations. Reports that she has had a stress test in [place] a few years ago. Report from 2021 diagnosis of NSTEMI does show a troponin of 0.116 she was transferred outside facility for workup. Patient states she did not have any workup. Patient is not having any chest pain now. 0700 Dr. Miller accepts patient. Discharge Plan Departure Patient Disposition: Admitted to Surgery Clinical Impression: Acute appendicitis Admit Date/Time: 05/03/24 07:00 Admit Provider: Radha Miller
[2024-05-03 05:38] LABS: Add Manual Diff / Slide Review NO; Basophils Absolute Auto 0 /uL (0-100); Basophils Percent Auto 0.3 % (0-2); Eosinophils Absolute Auto 100 /uL (0-450); Eosinophils Percent Auto 0.8 % (2-4); Hematocrit 43.8 % (36-46); Hemoglobin 14.7 g/dL (12.0-16.0); Lymphocytes Absolute Auto 1600 /uL (1100-4500); Mean Corpuscular HGB Conc 33.7 % (30-36); Mean Corpuscular Hemoglobin 30.5 PG (26-34); Mean Corpuscular Volume 90.6 fL (80-100); Monocytes Absolute Auto 800 /uL (0-900); Monocytes Percent Auto 5.5 % (3-14); Neutrophils Absolute Auto 11700 /uL (1500-7000); Neutrophils Percent Auto 82.4 % (50-75); Platelet Count 398 X10^3/uL (150-400); Red Blood Cell Count 4.83 X10^6/uL (4.0-5.2); White Blood Cell Count 14.3 X10^3/uL (4.5-11.0)
[2024-05-03] MEDS: SODIUM CHLORIDE 0.9% 1,000 ML 1000 ML IV (05:45)
[2024-05-03] MEDS: KETOROLAC 30 MG/ML VIAL 15 MG IV (05:45)
[2024-05-03] MEDS: ONDANSETRON 4 MG/2 ML INJ IV ×2 (05:45→08:40)
[2024-05-03 05:57] LABS: Creatine Kinase 456 U/L (30-135)
[2024-05-03 05:58] LABS: Alanine Aminotransferase 41 IU/L (<35); Albumin 4.6 g/dL (3.5-5.0); Albumin Globulin Ratio 1.5 (1.0-2.8); Alkaline Phosphatase 94 U/L (38-126); Aspartate Aminotransferase 49 IU/L (14-36); BUN Creatinine Ratio 17.5 (6-22); Bilirubin Total 0.8 mg/dL (0.2-1.3); Blood Urea Nitrogen 10 mg/dL (7-17); Calcium 9.2 mg/dL (8.4-10.2); Carbon Dioxide 31 mmol/L (22-32); Chloride 105 mmol/L (98-107); Estimated Glomerular Filt Rate > 60 mL/min (>60); Glucose 142 mg/dL (70-100); HEMOLYSIS < 15 (0-50); Lipase 107 U/L (23-300); Sodium 141 mmol/L (137-145); Total Protein 7.6 g/dL (6.3-8.2)
[2024-05-03 06:09] LABS: Troponin I < 0.012 ng/mL (0.01-0.034)
--- NOTE | 2024-05-03 06:40 | EKG_ITS ---
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
--- NOTE | 2024-05-03 06:46 | EKG_ITS ---
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 Electronically Signed On 05-03-2024 15:04:59 PDT by Shin Lai
[2024-05-03] MEDS: metroNIDAZOLE 500 MG/100 ML PIGGYBACK 100 MG IV (07:17)
[2024-05-03] MEDS: LACTATED RINGERS 1,000 ML 100 ML IV (07:34)
[2024-05-03 08:30] LABS: Creatine Kinase 369 U/L (30-135)
[2024-05-03 08:43] LABS: Troponin I < 0.012 ng/mL (0.01-0.034)
[2024-05-03] MEDS: CIPROFLOXACIN 200 MG/100 ML PIGGYBACK 100 MG IV ×2 (09:08→20:02)
[2024-05-03] MEDS: SCOPOLAMINE 1 PATCH TOP (09:35)
[2024-05-03] MEDS: MORPHINE 2 MG/ML INJ IV ×3 (09:36→19:29)
--- NOTE | 2024-05-03 09:55 | PC.NURSE ---
Pt nauseated after walking to the bathroom with dry heaving. Pt repositioned in bed.
--- NOTE | 2024-05-03 11:40 | P.HP_ITS ---
History of Present Illness History of Present Illness Date Patient Seen: 05/03/24 Time Patient Seen: 11:40 Chief complaint: dizziness, shakiness, nausea Narrative: Abdominal pain started this morning. Had episode of appendicitis treated medically 2 years ago. Talks about having had a rectal trauma that required diverting colostomy that was later taken down. Prefers surgical removal this time as recommended. Pain is intermittent and sharp, +nausea. [facility] Medical History Colostomy in place Traumatic perforation of rectum Healthy adult Surgical History History of colostomy reversal Social History household members: none Smoking Status: Never smoker Meds Home Medications and Allergies Home Medications Medication Instructions Recorded Confirmed Type acetaminophen 325 mg capsule 650 mg (2 x 325 mg) PO QID PRN 07/04/22 Rx (Tylenol) pain #60 caps amoxicillin 500 mg-potassium 1 tab PO BID #14 tabs 07/04/22 Rx clavulanate 125 mg tablet (Augmentin) ibuprofen 200 mg tablet 400 mg (2 x 200 mg) PO Q6H #60 tabs 07/04/22 Rx oxycodone 5 mg tablet 5 mg PO Q6H PRN pain #20 tabs 07/04/22 Rx Allergies Allergy/AdvReac Type Severity Reaction Status Date / Time Penicillins Allergy Rash Verified 07/03/22 16:41 Review of Systems Review of Systems ROS: Yes All systems reviewed with the patient and are negative except as otherwise documented Exam Vital Signs (past 8 hours): - 05/03/24 05:21 05/03/24 05:33 05/03/24 06:00 Temperature 97.4 F L Pulse Rate 107 H 77 60 Respiratory Rate 20 Blood Pressure 144/83 H Pulse Oximetry 99 99 98 Oxygen Delivery Method Room Air 05/03/24 06:01 05/03/24 06:01 05/03/24 06:32 Temperature Pulse Rate 60 85 Respiratory Rate Blood Pressure 145/61 H Pulse Oximetry 98 99 Oxygen Delivery Method 05/03/24 06:34 05/03/24 06:34 05/03/24 07:00 Temperature Pulse Rate 88 85 Respiratory Rate 24 Blood Pressure 153/75 H Pulse Oximetry 99 99 Oxygen Delivery Method 05/03/24 07:00 05/03/24 07:30 05/03/24 07:30 Temperature Pulse Rate 74 Respiratory Rate 18 Blood Pressure 166/72 H 157/72 H Pulse Oximetry 99 Oxygen Delivery Method Room Air 05/03/24 08:00 05/03/24 08:00 05/03/24 08:30 Temperature Pulse Rate 82 68 Respiratory Rate 12 15 Blood Pressure 160/70 H Pulse Oximetry 99 98 Oxygen Delivery Method Room Air 05/03/24 09:00 05/03/24 09:30 05/03/24 09:48 Temperature Pulse Rate 63 93 H 77 Respiratory Rate 17 18 Blood Pressure Pulse Oximetry 98 100 97 Oxygen Delivery Method Room Air Room Air 05/03/24 09:48 05/03/24 10:00 05/03/24 10:00 Temperature Pulse Rate 72 Respiratory Rate 18 Blood Pressure 150/66 H 141/67 H Pulse Oximetry 98 Oxygen Delivery Method 05/03/24 10:30 05/03/24 10:31 05/03/24 10:31 Temperature Pulse Rate 72 71 Respiratory Rate 22 Blood Pressure 181/74 H Pulse Oximetry 98 98 Oxygen Delivery Method Room Air 05/03/24 11:00 05/03/24 11:00 05/03/24 11:26 Temperature 97.2 F L Pulse Rate 63 72 Respiratory Rate 16 18 Blood Pressure 151/69 H 150/60 H Pulse Oximetry 99 100 Oxygen Delivery Method Room Air Room Air Oxygen Delivery Method Room Air Const General: acute distress Nutritional Appearance: average body habitus HENMT Head: normocephalic and atraumatic Ears: hearing grossly normal bilaterally Eyes Sclera: sclerae normal Neck Neck: trachea midline Resp Effort & Inspection: normal respiratory effort and able to speak in complete sentences Cardio Rate: tachycardic Rhythm: regular rhythm GI Palpation: soft Skin General: elasticity normal Neuro General: patient alert, patient awake and patient oriented x3 Cognition: normal cognition Psych Mental Status: mental status grossly normal Judgment: judgment good Objective Labs 05/03/24 05:30 05/03/24 05:30 Labs: Laboratory Results - last 24 hr 05/03/24 05/03/24 05:30 08:09 WBC 14.3 H RBC 4.83 Hgb 14.7 Hct 43.8 MCV 90.6 MCH 30.5 MCHC 33.7 RDW 14.0 Plt Count 398 Neut % (Auto) 82.4 H Lymph % (Auto) 11.0 L Patrick % (Auto) 5.5 Eos % (Auto) 0.8 L Baso % (Auto) 0.3 Neut # (Auto) 65325 H Lymph # (Auto) 1600 Patrick # (Auto) 800 Eos # (Auto) 100 Baso # (Auto) 0 Sodium 141 Potassium 4.0 Chloride 105 Carbon Dioxide 31 BUN 10 Creatinine 0.57 Estimated GFR > 60 BUN/Creatinine Ratio 17.5 Glucose 142 H Calcium 9.2 Total Bilirubin 0.8 AST 49 H ALT 41 H Alkaline Phosphatase 94 Total Creatine Kinase 456 H 369 H Troponin I < 0.012 < 0.012 Total Protein 7.6 Albumin 4.6 Globulin 3.0 Albumin/Globulin Ratio 1.5 Lipase 107 Assessment & Plan Assessment & Plan narrative: recurrent appendicitis Plan: Lap appy, possible open Time-Based Coding :: [TOTAL MINUTES] spent with patient and on the chart (including review of chart, obtaining history, exam, reviewing outside data, placing orders, documenting exam and treatment plan, and counseling patient) on [DATE].
--- NOTE | 2024-05-03 12:24 | SUR.OPER ---
Supine on padded OR bed, head on pillow, right arm secured on padded arm board at <90 degrees abduction, left arm padded and tucked, legs uncrossed, safety belt at thigh, tape over blanket over lower legs.
[2024-05-03] MEDS: BUPIVACAINE 0.25% (PF) 30 ML, EPINEPHrine 0.15 MG INJ (12:29)
--- NOTE | 2024-05-03 13:06 | PM.OP.1 ---
Operative Date/Time/Diagnoses Date of procedure: 05/03/24 Time of procedure: 13:06 Pre-op diagnosis: Acute appendicitis Post-op diagnosis: same Procedure & Clinicians Procedure: Laparoscopic appendectomy Same procedure as scheduled: Yes Indications: Recurrent acute appendicitis Surgeon: Radha Miller Pizza Delivery Driver: Delta Bertrand Anesthesia Type: General Operative Notes Findings: Fluid-filled appendix related to adhesions, no overt infection. And left ovarian cyst visualized but not manipulated. Closure Type: primary Specimen(s): other (Appendix) Estimated Blood Loss (mL): 10 Blood products transfused: none Procedure in detail: Preop diagnosis: Acute appendicitis Postop diagnosis: Same Operative procedure: Laparoscopic appendectomy. Surgeon: Ruth Miller MD Anesthetic: General with ET tube intubation along with local. Findings: Abnormally distended gallbladder with thin wall, no infection, no mucocele. Multiple pelvic adhesions. Left ovarian cyst approximately 5 cm in size. Procedure: Patient placed in a supine position. Prepped and draped in sterile fashion to expose her abdomen. Infraumbilical port site was placed using open technique a 12 mm port. Insufflation began all the ports were placed under direct vision including a 5 mm port in the left pelvis x2. Appendix was identified and removed from its area of adhesions with blunt dissection electrocautery. The was loss of integrity of the wall of the appendix with local contamination of liquid stool. This was retrieved and irrigated to a clear return. Appendiceal mesentery were taken down with electrocautery and excellent hemostasis. A SUMAN stapling device was used to amputate the appendix was then placed into an Endo-Catch bag and pulled through the infraumbilical port site intact. I surveyed the abdomen for hemostasis inappropriate irrigation. I then removed all ports and began closure. Closure consisted of interrupted 0 Vicryl for fascial closure. Skin was closed with running 4-0 Vicryl. Steri-Strips and sterile dressings were placed. Patient was awakened, extubated, taken to recovery room in stable condition. Needle, instrument, sponge counts were correct. Specimen: Appendix blood loss: 10 mL Complications: none Post-operative Condition: stable Disposition: PACU
--- NOTE | 2024-05-03 14:43 | PC.ADMIT ---
[address] Admission Note: Admitted from PACU via stretcher. Stand pivot to room bed. Patient not answering questions, looking and maintaining eye contact when talked to. Wincing and localizing pain in abdomen, calling out, medicated per EMAR. Repeatedly saying what is this, what is going on? despite frequent redirects. Exhibiting paranoia behavior towards staff, quietly saying you're doing this to me and who gave you these orders? Vitals stable. Admission questions completed as best as possible. The patient,Liudmila Major,59 y/o, was given written information regarding hospital policies, unit procedures and contact persons. Patient's smoking status: Never smoker. Vital Signs - 8 hr 05/03/24 07:00 05/03/24 07:00 05/03/24 07:30 Temperature Pulse Rate 85 Respiratory Rate 24 Blood Pressure 166/72 H 157/72 H Pulse Oximetry 99 Oxygen Delivery Method 05/03/24 07:30 05/03/24 08:00 05/03/24 08:00 Temperature Pulse Rate 74 82 Respiratory Rate 18 12 Blood Pressure 160/70 H Pulse Oximetry 99 99 Oxygen Delivery Method Room Air 05/03/24 08:30 05/03/24 09:00 05/03/24 09:30 Temperature Pulse Rate 68 63 93 H Respiratory Rate 15 17 Blood Pressure Pulse Oximetry 98 98 100 Oxygen Delivery Method Room Air Room Air 05/03/24 09:48 05/03/24 09:48 05/03/24 10:00 Temperature Pulse Rate 77 72 Respiratory Rate 18 18 Blood Pressure 150/66 H Pulse Oximetry 97 98 Oxygen Delivery Method Room Air 05/03/24 10:00 05/03/24 10:30 05/03/24 10:31 Temperature Pulse Rate 72 Respiratory Rate 22 Blood Pressure 141/67 H 181/74 H Pulse Oximetry 98 Oxygen Delivery Method 05/03/24 10:31 05/03/24 11:00 05/03/24 11:00 Temperature Pulse Rate 71 63 Respiratory Rate 16 Blood Pressure 151/69 H Pulse Oximetry 98 99 Oxygen Delivery Method Room Air Room Air 05/03/24 11:26 05/03/24 13:12 05/03/24 13:17 Temperature 97.2 F L 97.4 F L 97.4 F L Pulse Rate 72 95 H 95 H Respiratory Rate 18 15 15 Blood Pressure 150/60 H 130/69 118/65 Pulse Oximetry 100 99 98 Oxygen Delivery Method Room Air Room Air Room Air 05/03/24 13:24 05/03/24 13:28 05/03/24 13:33 Temperature 97.4 F L 97.2 F L 97.2 F L Pulse Rate 85 79 76 Respiratory Rate 15 15 17 Blood Pressure 116/63 119/62 121/66 Pulse Oximetry 99 99 99 Oxygen Delivery Method Room Air Room Air Room Air
[2024-05-03] MEDS: GABAPENTIN 300 MG CAPSULE PO (21:26)
[2024-05-03] MEDS: SODIUM CHLORIDE 0.9% FLUSH 10 ML IV (21:26)
[2024-05-03] MEDS: CELECOXIB 200 MG CAPSULE PO (21:26)
[2024-05-03] MEDS: ACETAMINOPHEN 325 MG TABLET 650 MG PO (21:27)
[2024-05-04] VITALS (10 sets, daily range): BP systolic 90–104; BP diastolic 50–58; PULSE 82–106; RESP 16–17; TEMP 36.4–37.2; O2SAT 94–98
[2024-05-04] MEDS: HYDROCODONE/ACET 5/325 TABLET 1 TAB PO (06:11)
[2024-05-04] MEDS: CIPROFLOXACIN 400 MG/200 ML PIGGYBACK 100 MG IV (08:05)
[2024-05-04] MEDS: CELECOXIB 200 MG CAPSULE PO ×2 (08:38→20:45)
[2024-05-04] MEDS: GABAPENTIN 300 MG CAPSULE PO ×3 (08:38→20:45)
[2024-05-04] MEDS: SODIUM CHLORIDE 0.9% FLUSH 10 ML IV (08:39)
[2024-05-04] MEDS: HYDROCODONE/ACET 10/325 TABLET 1 TAB PO (09:11)
--- NOTE | 2024-05-04 13:46 | PC.NURSE ---
pt discharge put on hold until tomorrow when more resources are available for skilled nursing. Pt aware and agrees with plan
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
--- NOTE | 2024-05-04 19:25 | PC.NURSE ---
pt unable to void after being catheterized earlier in the day. 800cc obtained the first time and 600cc the second time. Pt still had scopolamine patch behind her left ear, removed the patch. encouraged the pt to try standing in the shower to void and she agreed to try.
[2024-05-05] MEDS: ACETAMINOPHEN 325 MG TABLET 650 MG PO ×2 (03:20→16:45)
[2024-05-05 08:00] VITALS: BP 105/60; PULSE 138; RESP 18; TEMP 36.4; O2SAT 95
[2024-05-05] MEDS: CELECOXIB 200 MG CAPSULE PO (08:43)
[2024-05-05] MEDS: GABAPENTIN 300 MG CAPSULE PO (08:43)
--- NOTE | 2024-05-05 10:30 | CM.DPNOTE ---
Addendum entered by DENIS Rodriguez 05/05/24 14:07: ADD: Updated Yolanda [facility] P [phone] that patient is discharging back to the community today and inevitably refused [address] intake and thus any emergency usp/housing resource. Yolanda and community underwriting support manager Speedy Padgett plan to be out in the community WednesdayMay 09 and can keep an eye out for patient; offer sleeping bag, food box etc. Addendum entered by DENIS Rodriguez 05/05/24 13:56: ADD: Update on patient from [facility], patient will be discharged with supplies for straight cath r/t urinary retention. Patient will have dinner and discharge back to the community. Original Note: DCP Anthony Spoke with patient this morning; patient becoming increasingly agitated with care and conversation about discharge plan. Discussed 211 for coordinated entry into emergency usp/housing assist P [phone], also discussed [facility] ([facility]) motel voucher program and assessed patient's willingness to engage in [facility]'s case management service, patient states agreement to all suggestions. Connected patient with water resource engineering specialist via 211. Later learned from patient that she refused to give any demographic information to intake/211. Patient requests to speak with RN and provider about abd distention. Updated RN and provider, patient refusing available resources; suspect related to her severe paranoid features with auditory and visual hallucination. No medical or safety concerns identified today, patient will be discharged back to the community, unhoused. HUYEN
[2024-05-05] MEDS: HYDROCODONE/ACET 5/325 TABLET 1 TAB PO (12:08)
--- NOTE | 2024-05-05 13:00 | PC.NURSE ---
Addendum entered by Maddison Tate R.N. 05/05/24 18:11: Pt was taken out via wheelchair with all of her belongings by Nicko GRADY, she stated when she left I am just going to check myself back in through the ED. No further patient contact at this time Addendum entered by Maddison Tate R.N. 05/05/24 15:27: Went over discharge instructions with patient, allowed pt time to read over documents and ask any questions that she might have, pt denied questions and signed instruction discharge form. Pt denies pain at this time but states I am still distended, this nurse educated pt again that she did just have abdominal surgery and will be distended from that procedure. All discharge paperwork completed, pt is cleared to discharge after dinner. Pt will be discharging back to the community, as she is refusing to complete the intake process necessary to receive community assistance. No further needs at this time. Addendum entered by Maddison Tate R.N. 05/05/24 13:35: Discussed with pt what time she would like to discharge, she stated sometime this evening, before it gets dark Pt will stay and eat dinner, then will be leaving after dinner. Updated Dr Barclay on the plan, he was agreeable. No further needs at this time. Original Note: Pt states that she was able to void last night for cage shift manager but this morning urine is only trickling out, encouraged pt to drink more water, use the running water in the shower to help her urinate. Bladder scan showed 650, after multiple attempts to urinate pt was able to void 200, but bladder scan showed 600cc more in bladder. This nurse used this opportunity to instruct pt on how to self intermittent catheter as pt will be discharged today. Was able to remove the additional 600cc of urine that showed on the bladder scan. Pt was grateful for the education and relief. Left message with Dr Barclay regarding pt need for straight catheter, no new orders at this time.
== END 2024-05-05 18:06 | disposition home or self-care (01) ==
LOC: ED 05:20 → AC 07:00 → ICU 13:48
PROVIDERS: Admitting Provider Surgery; Emergency Provider Emergency Medicine; Referring Provider Emergency Medicine; Visit Provider Surgery
PROC: 0DTJ4ZZ Resection of Appendix, Percutaneous Endoscopic Approach (ICD-10-PCS; CPT 44970; principal; 2024-05-03 12:00)
DX: K35.80 Unspecified acute appendicitis (principal); R42 Dizziness and giddiness; Z93.3 Colostomy status; I25.2 Old myocardial infarction; N83.202 Unspecified ovarian cyst, left side; N73.6 Female pelvic peritoneal adhesions (postinfective)
CPT/HCPCS: 44970; 36415; 74177; 80053; 81003; 82550; 83690; 84484; 85025; 93005; 96361; 96365; 96366; 96367; 96375; 96376; 99221; 99284; G0378; J0171; J0744; J1100; J1885; J2270; J2405; J2704; J3010; Q9967

== ENCOUNTER 2024-05-06 01:00 | Inpatient (IN) | payer SELFPAY ==
[2024-05-03 07:01] VITALS: BMI 23.4
[2024-05-06 01:09] VITALS: BP 139/80; PULSE 119; RESP 18; TEMP 37.1; O2SAT 95; BMI 23.4
[2024-05-06] MEDS: ONDANSETRON 4 MG ODT SL (01:39)
[2024-05-06] MEDS: ONDANSETRON 4 MG/2 ML INJ IV (02:51)
[2024-05-06] MEDS: HYDROMORPHONE 0.5 MG INJ IV (02:51)
[2024-05-06 02:58] LABS: Add Manual Diff / Slide Review NO; Basophils Absolute Auto 0 /uL (0-100); Basophils Percent Auto 0.2 % (0-2); Eosinophils Absolute Auto 100 /uL (0-450); Eosinophils Percent Auto 0.4 % (2-4); Hematocrit 37.7 % (36-46); Hemoglobin 12.8 g/dL (12.0-16.0); Lymphocytes Absolute Auto 500 /uL (1100-4500); Lymphocytes Percent Auto 2.4 % (25-40); Mean Corpuscular HGB Conc 33.9 % (30-36); Mean Corpuscular Hemoglobin 30.6 PG (26-34); Mean Corpuscular Volume 90.1 fL (80-100); Monocytes Absolute Auto 700 /uL (0-900); Monocytes Percent Auto 3.1 % (3-14); Neutrophils Absolute Auto 20000 /uL (1500-7000); Neutrophils Percent Auto 93.9 % (50-75); Platelet Count 374 X10^3/uL (150-400); Red Blood Cell Count 4.18 X10^6/uL (4.0-5.2); Red Cell Distribution Width 14.6 % (11.6-14.8); White Blood Cell Count 21.2 X10^3/uL (4.5-11.0)
[2024-05-06 03:04] LABS: Lactate (Lactic Acid) 1.5 mmol/L (0.7-2.1); Lipase 106 U/L (23-300)
[2024-05-06 03:05] LABS: Alanine Aminotransferase 23 IU/L (<35); Albumin Globulin Ratio 1.1 (1.0-2.8); Alkaline Phosphatase 111 U/L (38-126); Aspartate Aminotransferase 21 IU/L (14-36); BUN Creatinine Ratio 33.3 (6-22); Bilirubin Total 0.6 mg/dL (0.2-1.3); Blood Urea Nitrogen 23 mg/dL (7-17); Calcium 9.9 mg/dL (8.4-10.2); Carbon Dioxide 32 mmol/L (22-32); Chloride 104 mmol/L (98-107); Estimated Glomerular Filt Rate > 60 mL/min (>60); Globulin 3.5 g/dL (1.7-4.1); Glucose 165 mg/dL (70-100); HEMOLYSIS < 15 (0-50); Potassium 3.9 mmol/L (3.4-5.1); Sodium 142 mmol/L (137-145); Total Protein 7.5 g/dL (6.3-8.2)
--- NOTE | 2024-05-06 03:27 | DI.CT.S_ITS ---
PROCEDURE: CT ABDOMEN PELVIS W CON INDICATIONS: recent appendectomy increased pain TECHNIQUE: After the administration of intravenous contrast, axial sections acquired from the lung bases to the pubic symphysis. Coronal and sagittal reformats were performed. For radiation dose reduction, the following was used: automated exposure control, adjustment of mA and/or kV according to patient size. COMPARISON: [facility], CT, CT ABDOMEN PELVIS W CON, 05/03/2024, 6:16. FINDINGS: Image quality: Diagnostic. Lower Chest: Effusion/dependent changes slightly more right. Bilateral breast. ABDOMEN: Liver: No solid mass. Simple hepatic cysts are unchanged. Mild steatosis. Gallbladder: No radiopaque gallstones or wall thickening. Biliary ducts: No biliary dilation. Pancreas: No ductal dilation. Spleen: Size is within normal limits. Adrenal Glands: No adrenal nodules. Kidneys and Ureters: No hydronephrosis. No solid mass. No complex renal cystic lesion which requires follow up. Simple left renal cyst. Stomach and Bowel: Mild hiatal hernia. Distal esophagus is slightly thickened. Appendix has been removed. Mild fluid is present within the region the appendectomy. No enhancing collection. Thickened small bowel loop suspected to be jejunal with mesenteric stranding. No definitive transition point. Redundant colon with moderate colonic stool and postsurgical left colonic changes are present. Peritoneum: Mild dependent pelvic fluid. No free air. Ventral Wall: No significant ventral hernia. Abdominal Nodes: No retroperitoneal or mesenteric adenopathy by size criteria. Vessels: Aorta and inferior vena cava are normal in size. PELVIS: Pelvic Organs: Left adnexa cystic structure is unchanged compared to prior exam. Bladder: No bladder wall thickening, accounting for underdistention. Pelvic Nodes: No enlarged lymph nodes. Miscellaneous: No inguinal hernias are seen. Bones: No aggressive osseous abnormality. IMPRESSION: Interval appendectomy with mild fluid at the appendectomy site likely postsurgical without definitive appearance abscess. Thickened dilated appearance of the small bowel suggestive of enteritis and/or ileus. No definitive source of mechanical obstruction. Minimal bilateral effusions with superimposed atelectasis. Stable appearance of left ovarian cyst. The above findings are concordant with preliminary report. Dictated by: Eliza Nolan M.D. on 05/06/2024 at 7:53 Approved by: Eliza Nolan M.D. on 05/06/2024 at 7:57
[2024-05-06 03:40] VITALS: BP 148/63; PULSE 100; RESP 22; O2SAT 100
--- NOTE | 2024-05-06 05:13 | ED_ITS ---
HPI - Recheck/Abnormal Lab/Rx General Chief Complaint: Recheck/Abnormal Lab/Rx Stated Complaint: return was here earlier today, weakness, nauseas Time Seen by Provider: 05/06/24 05:05 Source: patient Mode of arrival: Ambulatory History of Present Illness HPI narrative: 59-year-old female now postop day [address] Miller here at [facility], complains of increasing lower abdominal discomfort and distention. Says that she has not had a bowel movement since discharge. Says she had difficulty with urinating, was told to self-catheterize but she had not been doing this. She denies flank pain, denies back pain. She has been passing some gas but no stool since discharge. She does not feel feverish. She denies chest pain shortness of breath. Related Data Home Medications Medication Instructions Recorded Confirmed No Known Home Medications 05/06/24 05/06/24 Allergies Allergy/AdvReac Type Severity Reaction Status Date / Time Penicillins Allergy Mild Rash Verified 05/06/24 07:24 Review of Systems Review of Systems Narrative: see HPI Patient History Medical History Colostomy in place Traumatic perforation of rectum Healthy adult Surgical History History of colostomy reversal Social History household members: none Smoking Status: Never smoker Smoking Status: Never smoker alcohol intake frequency: 0-2 drinks per day Substance Use Type: does not use Exam Narrative Exam Narrative: GENERAL: Well-developed patient, in mild distress. HEAD: Atraumatic. Normocephalic. EYES: Pupils equal round and reactive. Extraocular motions intact. No scleral icterus. No injection or drainage. ENT: Nose without bleeding, purulent drainage. Throat without erythema, tonsillar hypertrophy or exudate. Airway patent. NECK: Trachea midline. Non tender CARDIOVASCULAR: Regular rate and rhythm without murmurs, gallops, or rubs. RESPIRATORY: Clear to auscultation. Breath sounds equal bilaterally. No wheezes, rales, or rhonchi. GASTROINTESTINAL: Abdomen nonrigid, with mild generalized tenderness, unremarkable bowel tones without rushes or tinkles, laparoscopic scars healing well, no obvious ventral hernia, no obvious palpable suprapubic mass. EXTREMITIES: No edema or joint tenderness. BACK: Nontender without deformity or crepitance. No flank tenderness. NEURO: AOx3. Grossly nonfocal neuro exam SKIN: No rash or erythema of visible areas Initial Vital Signs Initial Vital Signs: Vital Signs Temperature 98.8 F 05/06/24 01:09 Pulse Rate 119 H 05/06/24 01:09 Respiratory Rate 18 05/06/24 01:09 Blood Pressure 139/80 05/06/24 01:09 Pulse Oximetry 95 05/06/24 01:09 Oxygen Delivery Method Room Air 05/06/24 01:09 Course Orders Ordered: Acetaminophen (Acetaminophen 325 Mg Tablet) 650 mg PO Q6H PRN PRN Reason: Fever/Mild Pain (1-3) Hydromorphone HCl (Hydromorphone 0.5 Mg Inj) 0.5 mg IV Q2H PRN PRN Reason: Pain, Severe (7-10) Sodium Chloride (Normal Saline 0.9%) 1,000 mls @ 100 mls/hr IV CONT BHAVNA Last Admin: 05/06/24 08:15 Dose: 100 mls/hr Documented By: RYLAND Naloxone HCl (Naloxone 0.4 Mg/Ml Vial) 0.2 mg IV Q2MIN PRN PRN Reason: Opiate Reversal Ondansetron HCl (Ondansetron 4 Mg/2 Ml Inj) 4 mg IV NOW PRN PRN Reason: Nausea And Vomiting Last Admin: 05/06/24 02:51 Dose: 4 mg Documented By: YURY Ondansetron HCl (Ondansetron 4 Mg Odt) 4 mg SL NOW PRN PRN Reason: Nausea And Vomiting Last Admin: 05/06/24 01:39 Dose: 4 mg Documented By: YURY Ondansetron HCl (Ondansetron 4 Mg/2 Ml Inj) 4 mg IV Q8HR PRN PRN Reason: Nausea And Vomiting Pantoprazole Sodium (Pantoprazole Dr 20 Mg Tablet) 20 mg PO 0600 [facility] Discontinued Medications Hydromorphone HCl (Hydromorphone 0.5 Mg Inj) 0.5 mg IV NOW ONE Stop: 05/06/24 02:48 Last Admin: 05/06/24 02:51 Dose: 0.5 mg Documented By: YURY Vital Signs Vital signs: Vital Signs - 8 hr 05/06/24 01:09 05/06/24 03:40 05/06/24 05:32 Temperature 98.8 F Pulse Rate 119 H 100 H 115 H Respiratory Rate 18 22 18 Blood Pressure 139/80 148/63 H 113/54 L Pulse Oximetry 95 100 98 Oxygen Delivery Method Room Air Room Air Room Air 05/06/24 05:50 Temperature 98.5 F Pulse Rate Respiratory Rate Blood Pressure Pulse Oximetry Oxygen Delivery Method MDM - Recheck/Abnormal Lab/Rx Lab Data Attestation: I reviewed the patient's lab results. 05/06/24 15:35 05/06/24 02:40 Labs: Lab Results 05/06/24 05/06/24 Range/Units 02:40 05:39 WBC 21.2 H (4.5-11.0) X10^3/uL RBC 4.18 (4.0-5.2) X10^6/uL Hgb 12.8 (12.0-16.0) g/dL Hct 37.7 (36-46) % MCV 90.1 (80-100) fL MCH 30.6 (26-34) PG MCHC 33.9 (30-36) % RDW 14.6 (11.6-14.8) % Plt Count 374 (150-400) X10^3/uL Neut % (Auto) 93.9 H (50-75) % Lymph % (Auto) 2.4 L (25-40) % [place] % (Auto) 3.1 (3-14) % Eos % (Auto) 0.4 L (2-4) % Baso % (Auto) 0.2 (0-2) % Neut # (Auto) 44362 H (9779-6918) /uL Lymph # (Auto) 500 L (1911-8278) /uL [place] # (Auto) 700 (0-900) /uL Eos # (Auto) 100 (0-450) /uL Baso # (Auto) 0 (0-100) /uL Sodium 142 (137-145) mmol/L Potassium 3.9 (3.4-5.1) mmol/L Chloride 104 (98-107) mmol/L Carbon Dioxide 32 (22-32) mmol/L BUN 23 H (7-17) mg/dL Creatinine 0.69 (0.52-1.04) mg/dL Estimated GFR > 60 (>60) mL/min BUN/Creatinine Ratio 33.3 H (6-22) Glucose 165 H (70-100) mg/dL Lactate 1.5 (0.7-2.1) mmol/L Calcium 9.9 (8.4-10.2) mg/dL Total Bilirubin 0.6 (0.2-1.3) mg/dL AST 21 (14-36) IU/L ALT 23 (<35) IU/L Alkaline Phosphatase 111 (38-126) U/L Total Protein 7.5 (6.3-8.2) g/dL Albumin 4.0 (3.5-5.0) g/dL Globulin 3.5 (1.7-4.1) g/dL Albumin/Globulin Ratio 1.1 (1.0-2.8) Lipase 106 (23-300) U/L Urine RBC 1-5/hpf (0-5/HPF) Urine WBC 0-1/hpf (0-5/HPF) Ur Squamous Epith Cells 1-5 /hpf (0-5/HPF) Urine Bacteria Few (2-10) H (None) Ur Culture Indicated? Cult not indicated Vol Urine Centrifuged 10ml (spun) U Opiates 300ng/mL cut Positive H (Negative) Ur Oxycodone Screen Negative (Negative) Urine Methadone Screen Negative (Negative) Ur Barbiturates Screen Negative (Negative) U Tricyclic Antidepress Negative (Negative) Ur Phencyclidine Scrn Negative (Negative) Ur Amphetamines Screen Negative (Negative) U Methamphetamines Scrn Negative (Negative) Ur MDMA Scrn (Ecstasy) Negative (Negative) U Benzodiazepines Scrn Negative (Negative) Urine Cocaine Screen Negative (Negative) U Marijuana (THC) Screen Negative (Negative) Urine pH Normal (Normal) Urine Specific [place] Normal (Normal) Ur Creatinine Normal (Normal) Urine Dip Bedside Urine Glucose Negative Bedside Urine Bilirubin - Negative Bedside Urine Ketone +/- 5 Urine Specific [place] 1.020 Bedside Urine Occult Blood ++ Bedside Urine pH 6.0 Bedside Urine Protein + 30 Bedside Urine Urobilinogen - Negative Bedside Urine Nitrite - Negative Bedside Urine Leukocytes +/- 15 Esterase MDM Narrative Medical decision making narrative: 59-year-old recent abdominal surgery with increased pain, screening lab elevated white blood cell count 21,000, urinalysis pending. CT abdomen and pelvis imaging requested CT abdomen and pelvis with IV contrast. Impressions: ?Interval appendectomy with new mild partially loculated intraperitoneal fluid maybe postsurgical change. Peritonitis or early abscess formation less likely. Close follow up as clinically indicated. New probable enteritis and ileus. Mechanical obstruction less likely. Radiographic follow up as clinically needed. New small [id number]-left pleural effusions and probable atelectasis. Pneumonia less likely. Stable 5.2 cm left ovarian cyst. See teleradiology report UA negative 0530, case discussed with surgery on-call Dr. Barclay, results of CT findings relayed, urinalysis still pending, no surgical emergency described on imaging, ileus and leukocytosis noted, he can consult, requests admission to hospitalist service. Will contact hospitalist Case discussed with hospitalist Dr Hein, accepts patient for admission to observation Critical Care Time Critical Care Time Critical Care Time: Yes Total Critical Care Time: 35 Attestation: The high probability of a clinically significant, sudden or life threatening deterioration of the [abdominopelvic, gastrointestinal, genitourinary] system(s) required my full and direct attention, intervention and personal management. The aggregate critical care time was [35] minutes. This time is in addition to time spent performing reported procedures but includes the following: [x] Data Review and interpretation [x] Patient assessment and monitoring of vital signs [x] Documentation [x] Medication orders and management Discharge Plan Departure Patient Disposition: Admitted as Observation Clinical Impression: Abdominal pain, Ileus, Homelessness, Leukocytosis, Status post appendectomy Admit Date/Time: 05/06/24 06:12 Admit Provider: Dharmesh Hein
[2024-05-06 05:32] VITALS: BP 113/54; PULSE 115; RESP 18; O2SAT 98
[2024-05-06 05:50] VITALS: TEMP 36.9
[2024-05-06 05:54] LABS: Bacteria Urine Few (2-10); Culture Indicated Urine Cult Not Indicated; RBC Urine 1-5/HPF (0-5/HPF); Squamous Epithelial Cell Urine 1-5 /HPF (0-5/HPF); Urine Volume 10mL (spun); WBC Urine 0-1/HPF (0-5/HPF)
[2024-05-06 06:38] LABS: UR Morphine/Opiate cutoff 300 Positive (Negative); Ur Creatinine Normal (Normal); Ur Specific Gravity Normal (Normal); Urine Amphetamines Negative (Negative); Urine Barbiturates Negative (Negative); Urine Benzodiazepines Negative (Negative); Urine Cocaine Negative (Negative); Urine MDMA Negative (Negative); Urine Methadone Negative (Negative); Urine Methamphetamines Negative (Negative); Urine Oxycodone Negative (Negative); Urine Phencyclidine Negative (Negative); Urine Tetrahydrocannabinol Negative (Negative); Urine Tricyclic Antidepressant Negative (Negative); Urine pH Normal (Normal)
--- NOTE | 2024-05-06 07:08 | PM.HP.1 ---
History of Present Illness History of Present Illness Chief complaint: return was here earlier today, weakness, nauseas Narrative: 59 years old female with a past medical history of traumatic perforation of the rectum and colostomy reversal in 2003 and a recent history of laparoscopic appendectomy on the third now presents to the emergency room for abdominal discomfort and distention. Surgery by itself was uneventful but postoperatively had some difficulty passing urine and was told to self catheterize which apparently patient was not able to do. There was urine incontinence with dribbling and reports no bowel movement since the day prior to surgery. Has been passing gas. Denies any dysuria. No fever episodes but she has not checked her temperature. Denies any chest pain or shortness of breath. In the emergency room, was noted to be tachycardic with a heart rate in the 119 and labs revealed white count of 21.2 with a hemoglobin of 12.8, BUN of 23, creatinine of 0.69 and a sodium of 142. Urinalysis is negative for nitrites but positive for leukocyte esterase. CT abdomen with IV contrast shows interval appendectomy with partially loculated intraperitoneal fluid likely postsurgical. Peritonitis or early abscess less likely and pneumonia was less likely. Possibility of ileus was reviewed. Discussed with on-call surgery?Dr. 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 perforation of rectum Healthy adult Surgical History History of colostomy reversal Social History household members: none Smoking Status: Never smoker Meds Home Medications and Allergies Home Medications Medication Instructions Recorded Confirmed Type acetaminophen 325 mg capsule 650 mg (2 x 325 mg) PO QID PRN 07/04/22 05/05/24 Rx (Tylenol) pain #60 caps ibuprofen 200 mg tablet 400 mg (2 x 200 mg) PO Q6H #60 tabs 07/04/22 05/05/24 Rx oxycodone 5 mg tablet 5 mg PO Q6H PRN pain #20 tabs 05/04/24 05/05/24 Rx Allergies Allergy/AdvReac Type Severity Reaction Status Date / Time Penicillins Allergy Rash Verified 07/03/22 16:41 Review of Systems Review of Systems Narrative: 12 point review of system is done and negative unless otherwise stated in history of present illness. Exam Vital Signs (past 8 hours): - 05/06/24 01:09 05/06/24 03:40 05/06/24 05:32 Temperature 98.8 F Pulse Rate 119 H 100 H 115 H Respiratory Rate 18 22 18 Blood Pressure 139/80 148/63 H 113/54 L Pulse Oximetry 95 100 98 Oxygen Delivery Method Room Air Room Air Room Air 05/06/24 05:50 Temperature 98.5 F Pulse Rate Respiratory Rate Blood Pressure Pulse Oximetry Oxygen Delivery Method Oxygen Delivery Method Room Air Narrative Exam Narrative: Patient does not appear to be in acute distress. Mild tenderness noted in the left lower quadrant. Not rigid. Bowel sounds are heard Objective Labs 05/06/24 02:40 05/06/24 02:40 Labs: Laboratory Results - last 24 hr 05/06/24 05/06/24 02:40 05:39 WBC 21.2 H RBC 4.18 Hgb 12.8 Hct 37.7 MCV 90.1 MCH 30.6 MCHC 33.9 RDW 14.6 Plt Count 374 Neut % (Auto) 93.9 H Lymph % (Auto) 2.4 L [place] % (Auto) 3.1 Eos % (Auto) 0.4 L Baso % (Auto) 0.2 Neut # (Auto) 98228 H Lymph # (Auto) 500 L [place] # (Auto) 700 Eos # (Auto) 100 Baso # (Auto) 0 Sodium 142 Potassium 3.9 Chloride 104 Carbon Dioxide 32 BUN 23 H Creatinine 0.69 Estimated GFR > 60 BUN/Creatinine Ratio 33.3 H Glucose 165 H Lactate 1.5 Calcium 9.9 Total Bilirubin 0.6 AST 21 ALT 23 Alkaline Phosphatase 111 Total Protein 7.5 Albumin 4.0 Globulin 3.5 Albumin/Globulin Ratio 1.1 Lipase 106 Urine RBC 1-5/hpf Urine WBC 0-1/hpf Ur Squamous Epith Cells 1-5 /hpf Urine Bacteria Few (2-10) H Ur Culture Indicated? Cult not indicated Vol Urine Centrifuged 10ml (spun) U Opiates 300ng/mL cut Positive H Ur Oxycodone Screen Negative Urine Methadone Screen Negative Ur Barbiturates Screen Negative U Tricyclic Antidepress Negative Ur Phencyclidine Scrn Negative Ur Amphetamines Screen Negative U Methamphetamines Scrn Negative Ur MDMA Scrn (Ecstasy) Negative U Benzodiazepines Scrn Negative Urine Cocaine Screen Negative U Marijuana (THC) Screen Negative Urine pH Normal Urine Specific [place] Normal Ur Creatinine Normal Assessment & Plan Assessment & Plan narrative: 59 years old female with a past medical history of traumatic perforation of the rectum and colostomy reversal in 2003 and a recent history of laparoscopic appendectomy on the third now presents to the emergency room for abdominal discomfort and distention. Surgery by itself was uneventful but postoperatively had some difficulty passing urine and was told to self catheterize which apparently patient was not able to do. There was urine incontinence with dribbling and reports no bowel movement since the day prior to surgery. Has been passing gas. Denies any dysuria. No fever episodes but she has not checked her temperature. Denies any chest pain or shortness of breath. In the emergency room, was noted to be tachycardic with a heart rate in the 119 and labs revealed white count of 21.2 with a hemoglobin of 12.8, BUN of 23, creatinine of 0.69 and a sodium of 142. Urinalysis is negative for nitrites but positive for leukocyte esterase. CT abdomen with IV contrast shows interval appendectomy with partially loculated intraperitoneal fluid likely postsurgical. Peritonitis or early abscess less likely and pneumonia was less likely. Possibility of ileus was reviewed. Discussed with on-call surgery?Dr. Barclay and recommend conservative management with admission for observation 1. Abdominal distention with discomfort status post recent laparoscopic appendectomy. White count is elevated but there is no fever episodes. Possibility of ileus noted. Will keep n.p.o. for now and focus on pain control with Tylenol and judicious use of narcotics if needed. The surgical site itself appears to be clear and no evidence of complications noted at this time. Will initiate bowel regimen to help with a bowel movement and also simethicone for GI discomfort. Follow surgery for further input. Patient does have concerns about the site where she had a colostomy takedown and the current surgical site being very close and will monitor closely for now. No evidence of any leak or complication noted 2. Leukocytosis. Unclear etiology but she did have a recent surgery. Watch closely for any developing signs of infection and threshold to start IV antibiotic is on the low side for now. 3. Nausea. Zofran as needed 4 GI prophylaxis will be with Protonix 5 DVT prophylaxis will be Lovenox Patient will be admitted under observation status Patient was evaluated in the emergency room with the help of a video communication device. Location of the patient is [facility] in [facility] Time-Based Coding :: [TOTAL MINUTES] spent with patient and on the chart (including review of chart, obtaining history, exam, reviewing outside data, placing orders, documenting exam and treatment plan, and counseling patient) on [DATE].
--- NOTE | 2024-05-06 07:16 | PC.NURSE ---
Pt ambulated to bathroom, able to urinate 100ml. Placed a catheter and drained another 400ml from bladder, left catheter in place due to verbal order from timmy
[2024-05-06 08:00] VITALS: BP 126/74; PULSE 107; RESP 16; TEMP 36.6; O2SAT 97
[2024-05-06 08:04] VITALS: BMI 23.4
[2024-05-06] MEDS: SODIUM CHLORIDE 0.9% 1,000 ML 100 ML IV (08:15)
--- NOTE | 2024-05-06 10:40 | CM.DANOTE ---
Initial DCP Assessment Note Patient had been discharged yesterday evening s/p lap appy, returned to the ER last night for complaints of nausea and difficulty urinating. Admitted OBS for further work up and management, ileus suspected. Patient currently homeless; no car. [facility] slitter scorer cut off operator Speedy Padgett P [phone] and Yol[facility] P [phone] familiar with patient. See extensive KALSOMINER note dated 05.04.24 and 05.05.24 for addtl information on this patient. Plan: Discharge back to the community vs motel voucher program (if patient agrees to comply and engage) vs taxi to [facility] in [place] [facility]. DENIS Castillo Discharge Planning/Care Management CM Discharge Assessment Start: 05/06/24 10:34 Freq: Status: Active Protocol: Document 05/06/24 10:36 HUYEN (Rec: 05/06/24 10:39 HUYEN [id number]) Discharge Planning Assessment Assigned Cash Applications Clerk DENIS Osuna DPOA/Assigned Designee Name thalia Vo Contact Information [phone] Advance Directives? No History Provided By Patient,Medical Record Prior Living Arrangements Homeless Household Members none Type of transporation used prior to Public Transportation admit Independent with ADL's Yes Is patient alert and oriented? Yes Barriers to Discharge Yes Comment Homeless Discharge Plan Homeless Snf Transportation Arrangement TBD Referrals Initiated Other Additional Comment [facility]
[2024-05-06 12:00] VITALS: BP 108/58; PULSE 82; RESP 16; TEMP 36.7; O2SAT 98
--- NOTE | 2024-05-06 13:13 | PM.HP.1 ---
History of Present Illness History of Present Illness Date Patient Seen: 05/06/24 Time Patient Seen: 08:20 Date of Onset of Symptoms: 05/06/24 Chief complaint: return was here earlier today, weakness, nauseas Narrative: Narrative: 59 years old female with a past medical history of traumatic perforation of the rectum and colostomy reversal in 2003 and a recent history of laparoscopic appendectomy on the third now presents to the emergency room for abdominal discomfort and distention. Surgery by itself was uneventful but postoperatively had some difficulty passing urine and was told to self catheterize which apparently patient was not able to do. There was urine incontinence with dribbling and reports no bowel movement since the day prior to surgery. Has been passing gas. Denies any dysuria. No fever episodes but she has not checked her temperature. Denies any chest pain or shortness of breath. In the emergency room, was noted to be tachycardic with a heart rate in the 119 and labs revealed white count of 21.2 with a hemoglobin of 12.8, BUN of 23, creatinine of 0.69 and a sodium of 142. Urinalysis is negative for nitrites but positive for leukocyte esterase. CT abdomen with IV contrast shows interval appendectomy with partially loculated intraperitoneal fluid likely postsurgical. Peritonitis or early abscess less likely and pneumonia was less likely. Possibility of ileus was reviewed. Discussed with on-call surgery?Dr. Barclay and recommend conservative management with admission for observation Update: The patient reports that she has ongoing abdominal discomfort. Negrete catheter was placed with 500 mL bladder residual. She reports significant improvement. FOR[facility]LY [facility] Medical History Colostomy in place Traumatic perforation of rectum Healthy adult Surgical History History of colostomy reversal Social History household members: none Smoking Status: Never smoker Meds Home Medications and Allergies Home Medications Medication Instructions Recorded Confirmed Type No Known Home Medications 05/06/24 05/06/24 History Allergies Allergy/AdvReac Type Severity Reaction Status Date / Time Penicillins Allergy Mild Rash Verified 05/06/24 07:24 Review of Systems Review of Systems ROS: Yes All systems reviewed with the patient and are negative except as otherwise documented Exam Vital Signs (past 8 hours): - 05/06/24 05:32 05/06/24 05:50 05/06/24 08:00 Temperature 98.5 F 97.8 F Pulse Rate 115 H 107 H Respiratory Rate 18 16 Blood Pressure 113/54 L 126/74 Pulse Oximetry 98 97 Oxygen Delivery Method Room Air Oxygen Delivery Method Room Air Narrative Exam Narrative: GENERAL: This is a well-nourished, well-developed patient, in no apparent distress. HEAD: Atraumatic. Normocephalic. No temporal or scalp tenderness. EYES: Pupils equal round and reactive. Extraocular motions intact. No scleral icterus. No injection or drainage. ENT: Mucous membranes pink and moist. NECK: Trachea midline. No JVD, bruits or lymphadenopathy. Supple, nontender, no meningeal signs. CARDIOVASCULAR: Regular rate and rhythm without murmurs, gallops, or rubs. RESPIRATORY: Clear to auscultation. GASTROINTESTINAL: Abdomen with bowel tones active in present, soft, mild diffuse abdominal tenderness, no guarding, rebound or rigidity, nondistended. Port dressings are in place, clean, dry and intact. GENITOURINARY: Negrete catheter in place. EXTREMITIES: No clubbing, cyanosis, or edema. NEUROLOGIC: Alert, oriented, speech fluent, full upper and lower motor strength, no focal deficits evident. DERMATOLOGIC: No rashes or skin lesions. Objective Labs 05/06/24 02:40 05/06/24 02:40 Labs: Laboratory Results - last 24 hr 05/06/24 05/06/24 02:40 05:39 WBC 21.2 H RBC 4.18 Hgb 12.8 Hct 37.7 MCV 90.1 MCH 30.6 MCHC 33.9 RDW 14.6 Plt Count 374 Neut % (Auto) 93.9 H Lymph % (Auto) 2.4 L [place] % (Auto) 3.1 Eos % (Auto) 0.4 L Baso % (Auto) 0.2 Neut # (Auto) 90208 H Lymph # (Auto) 500 L [place] # (Auto) 700 Eos # (Auto) 100 Baso # (Auto) 0 Sodium 142 Potassium 3.9 Chloride 104 Carbon Dioxide 32 BUN 23 H Creatinine 0.69 Estimated GFR > 60 BUN/Creatinine Ratio 33.3 H Glucose 165 H Lactate 1.5 Calcium 9.9 Total Bilirubin 0.6 AST 21 ALT 23 Alkaline Phosphatase 111 Total Protein 7.5 Albumin 4.0 Globulin 3.5 Albumin/Globulin Ratio 1.1 Lipase 106 Urine RBC 1-5/hpf Urine WBC 0-1/hpf Ur Squamous Epith Cells 1-5 /hpf Urine Bacteria Few (2-10) H Ur Culture Indicated? Cult not indicated Vol Urine Centrifuged 10ml (spun) U Opiates 300ng/mL cut Positive H Ur Oxycodone Screen Negative Urine Methadone Screen Negative Ur Barbiturates Screen Negative U Tricyclic Antidepress Negative Ur Phencyclidine Scrn Negative Ur Amphetamines Screen Negative U Methamphetamines Scrn Negative Ur MDMA Scrn (Ecstasy) Negative U Benzodiazepines Scrn Negative Urine Cocaine Screen Negative U Marijuana (THC) Screen Negative Urine pH Normal Urine Specific [place] Normal Ur Creatinine Normal Assessment & Plan Assessment & Plan narrative: 1. Abdominal distention with discomfort status post recent laparoscopic appendectomy. White count is elevated but there is no fever episodes. Possibility of ileus noted. Will keep n.p.o. for now and focus on pain control with Tylenol and judicious use of narcotics if needed. The surgical site itself appears to be clear and no evidence of complications noted at this time. Will initiate bowel regimen to help with a bowel movement and also simethicone for GI discomfort. Surgery consulted for input. Patient does have concerns about the site where she had a colostomy takedown and the current surgical site being very close and will monitor closely for now. No evidence of any leak or complication noted. 2. Leukocytosis. Unclear etiology s/p recent surgery. Continue to monitor and consider IV antibiotics if signs or symptoms of infection develop. 3. Nausea. Zofran as needed 4. Urinary retention. Continue Negrete catheterization. Voiding trial tomorrow. 5. Homelessness. 6. GI prophylaxis will be with Protonix 7. DVT prophylaxis will be Lovenox Time-Based Coding :: [TOTAL MINUTES] spent with patient and on the chart (including review of chart, obtaining history, exam, reviewing outside data, placing orders, documenting exam and treatment plan, and counseling patient) on [DATE]. Quality VTE Deep Vein Thrombosis/Pulmonary Embolism Present on Admission: No MIPS - Admit I confirm the patient?s Advance Care Plan is present, Code status is documented, Surrogate decision maker is in patient?s record [If Yes, STOP here]: Yes MIPS - Meds 'Current medications' to include all prescriptions, [id number] products, herbals, cannabis/cannabidiol products, and vitamin/mineral/dietary (nutritional) supplements. I have utilized all available resources to obtain, update, or review the patient?s current medications. [If Yes, STOP here]: Yes [facility] Charge Codes Initial inpatient/observation care: 32015 Lab Results Common Lab Results- Last: White Blood Count 21.2 X10^3/uL (4.5-11.0) H 05/06/24 Red Blood Count 4.18 X10^6/uL (4.0-5.2) 05/06/24 Hemoglobin 12.8 g/dL (12.0-16.0) 05/06/24 Hematocrit 37.7 % (36-46) 05/06/24 Mean Corpuscular Volume 90.1 fL (80-100) 05/06/24 Mean Corpuscular Hemoglobin 30.6 PG (26-34) 05/06/24 Mean Corpuscular Hemoglobin Concent 33.9 % (30-36) 05/06/24 Red Cell Distribution Width 14.6 % (11.6-14.8) 05/06/24 Platelet Count 374 X10^3/uL (150-400) 05/06/24 Neutrophils (%) (Auto) 93.9 % (50-75) H 05/06/24 Lymphocytes (%) (Auto) 2.4 % (25-40) L 05/06/24 Monocytes (%) (Auto) 3.1 % (3-14) 05/06/24 Eosinophils (%) (Auto) 0.4 % (2-4) L 05/06/24 Basophils (%) (Auto) 0.2 % (0-2) 05/06/24 Neutrophils # (Auto) 74915 /uL (7576-1917) H 05/06/24 Sodium Level 142 mmol/L (137-145) 05/06/24 Potassium Level 3.9 mmol/L (3.4-5.1) 05/06/24 Chloride Level 104 mmol/L (98-107) 05/06/24 Carbon Dioxide Level 32 mmol/L (22-32) 05/06/24 Blood Urea Nitrogen 23 mg/dL (7-17) H 05/06/24 Creatinine 0.69 mg/dL (0.52-1.04) 05/06/24 Estimat Glomerular Filtration Rate > 60 mL/min (>60) 05/06/24 BUN/Creatinine Ratio 33.3 (6-22) H 05/06/24 Glucose Level 165 mg/dL (70-100) H 05/06/24 Calcium Level 9.9 mg/dL (8.4-10.2) 05/06/24 Total Bilirubin 0.6 mg/dL (0.2-1.3) 05/06/24 Aspartate Amino Transf (AST/SGOT) 21 IU/L (14-36) 05/06/24 Alanine Aminotransferase (ALT/SGPT) 23 IU/L (<35) 05/06/24 Alkaline Phosphatase 111 U/L (38-126) 05/06/24 Total Protein 7.5 g/dL (6.3-8.2) 05/06/24 Albumin 4.0 g/dL (3.5-5.0) 05/06/24 Globulin 3.5 g/dL (1.7-4.1) 05/06/24 Albumin/Globulin Ratio 1.1 (1.0-2.8) 05/06/24 Alanine Aminotransferase (ALT/SGPT) 23 IU/L (<35) 05/06/24 Aspartate Amino Transf (AST/SGOT) 21 IU/L (14-36) 05/06/24 Blood Urea Nitrogen 23 mg/dL (7-17) H 05/06/24 Creatinine 0.69 mg/dL (0.52-1.04) 05/06/24 Estimat Glomerular Filtration Rate > 60 mL/min (>60) 05/06/24 BUN/Creatinine Ratio 33.3 (6-22) H 05/06/24 CA 125 Antigen 7.8 U/mL (0-35) 07/03/22 Hemoglobin 12.8 g/dL (12.0-16.0) 05/06/24 Red Blood Count 4.18 X10^6/uL (4.0-5.2) 05/06/24 Hematocrit 37.7 % (36-46) 05/06/24 Lipase 106 U/L (23-300) 05/06/24 Platelet Count 374 X10^3/uL (150-400) 05/06/24
[2024-05-06 15:45] LABS: Add Manual Diff / Slide Review NO; Basophils Absolute Auto 100 /uL (0-100); Basophils Percent Auto 0.4 % (0-2); Eosinophils Absolute Auto 200 /uL (0-450); Eosinophils Percent Auto 1.1 % (2-4); Hematocrit 33.6 % (36-46); Hemoglobin 11.1 g/dL (12.0-16.0); Lymphocytes Absolute Auto 900 /uL (1100-4500); Lymphocytes Percent Auto 5.7 % (25-40); Mean Corpuscular HGB Conc 33.2 % (30-36); Mean Corpuscular Hemoglobin 30.3 PG (26-34); Mean Corpuscular Volume 91.3 fL (80-100); Monocytes Absolute Auto 800 /uL (0-900); Monocytes Percent Auto 5.1 % (3-14); Neutrophils Absolute Auto 13300 /uL (1500-7000); Neutrophils Percent Auto 87.7 % (50-75); Platelet Count 316 X10^3/uL (150-400); Red Blood Cell Count 3.68 X10^6/uL (4.0-5.2); Red Cell Distribution Width 14.4 % (11.6-14.8); White Blood Cell Count 15.1 X10^3/uL (4.5-11.0)
--- NOTE | 2024-05-06 15:49 | PM.CN ---
History of Present Illness Consult details Date Patient Seen: 05/06/24 Time Patient Seen: 15:49 Chief complaint: return was here earlier today, weakness, nauseas Narrative: 59F returns to ER 3 days sp laparoscopic appendectomy for uncomplicated appendicitis. She was discharged home yesterday. At that time she was tolerant of a diet and amulatory. She was having intermittent incomplete bladder emptying had required several straight catheterizations. She was discharged with self catheterization supplies to use as needed. Last night she returned with abominal pain and emesis. At admission WBC 22, remainer of labs unremarkable. CT A/P demonstrates post surgical changes consistent with recent appendectomy. Today she is distraught. She tells me she never consented to having an appendectomy nor would she have. She suggests that perhaps someone forged her signature on the consent form. Meds Home Medications and Allergies Home Medications Medication Instructions Recorded Confirmed Type No Known Home Medications 05/06/24 05/06/24 History Allergies Allergy/AdvReac Type Severity Reaction Status Date / Time Penicillins Allergy Mild Rash Verified 05/06/24 07:24 Exam Vital Signs (past 8 hours): - 05/06/24 08:00 05/06/24 12:00 Temperature 97.8 F 98.1 F Pulse Rate 107 H 82 Respiratory Rate 16 16 Blood Pressure 126/74 108/58 L Pulse Oximetry 97 98 Oxygen Delivery Method Room Air Narrative Exam Narrative: Gen-Adult woman alert and oriented anxious ChestNon labored resp Cardiac regular rate AbdomenSoft mild distention. Laparposcopic port incisions CDI Objective Labs 05/06/24 02:40 05/06/24 02:40 Labs: Laboratory Results - last 24 hr 05/06/24 05/06/24 02:40 05:39 WBC 21.2 H RBC 4.18 Hgb 12.8 Hct 37.7 MCV 90.1 MCH 30.6 MCHC 33.9 RDW 14.6 Plt Count 374 Neut % (Auto) 93.9 H Lymph % (Auto) 2.4 L [place] % (Auto) 3.1 Eos % (Auto) 0.4 L Baso % (Auto) 0.2 Neut # (Auto) 81927 H Lymph # (Auto) 500 L [place] # (Auto) 700 Eos # (Auto) 100 Baso # (Auto) 0 Sodium 142 Potassium 3.9 Chloride 104 Carbon Dioxide 32 BUN 23 H Creatinine 0.69 Estimated GFR > 60 BUN/Creatinine Ratio 33.3 H Glucose 165 H Lactate 1.5 Calcium 9.9 Total Bilirubin 0.6 AST 21 ALT 23 Alkaline Phosphatase 111 Total Protein 7.5 Albumin 4.0 Globulin 3.5 Albumin/Globulin Ratio 1.1 Lipase 106 Urine RBC 1-5/hpf Urine WBC 0-1/hpf Ur Squamous Epith Cells 1-5 /hpf Urine Bacteria Few (2-10) H Ur Culture Indicated? Cult not indicated Vol Urine Centrifuged 10ml (spun) U Opiates 300ng/mL cut Positive H Ur Oxycodone Screen Negative Urine Methadone Screen Negative Ur Barbiturates Screen Negative U Tricyclic Antidepress Negative Ur Phencyclidine Scrn Negative Ur Amphetamines Screen Negative U Methamphetamines Scrn Negative Ur MDMA Scrn (Ecstasy) Negative U Benzodiazepines Scrn Negative Urine Cocaine Screen Negative U Marijuana (THC) Screen Negative Urine pH Normal Urine Specific [place] Normal Ur Creatinine Normal [facility] Medical History Colostomy in place Traumatic perforation of rectum Healthy adult Surgical History History of colostomy reversal Social History household members: none Tobacco & Substance Use Smoking Status: Never smoker Assessment & Plan Assessment and plan (1) Status post appendectomy: Status: Acute Assessment & Plan narrative: 59F readmitted with possible ileus following recent appendectomy for uncomplicated appendicitis. Labs and imaging reviewed. CT largely unremarkable, labs notable for leukocytosis but has improved with fluid resuscitation. At this point she is leaving against medical advise. I am recommending observation with fluid resuscitation cartwright catheter for urinary retention. She understands that there is a risk of sepsis and and has been advised to return to the emergency department for worsening abdominal pain, inability to urinate and fever. She has signed the AMA form. Time-Based Coding :: [TOTAL MINUTES] spent with patient and on the chart (including review of chart, obtaining history, exam, reviewing outside data, placing orders, documenting exam and treatment plan, and counseling patient) on [DATE].
--- NOTE | 2024-05-06 16:11 | P.DS_ITS ---
History of Present Illness History of Present Illness Date Patient Seen: 05/05/24 Time Patient Seen: 16:12 Chief complaint: return was here earlier today, weakness, nauseas Narrative: 59 F with hx of colostomy and reversal who has been treated for appendicitis previously non operatively presents with symptoms and radiographic findings of acute appendicitis. Discharge Providers Provider Date of admission: 05/03/24 06:12 Discharge Date: 05/05/24 Primary care physician: Doctor Paola MD Discharge provider: Miki Barclay MD Summary Hospital Course Discharge Diagnosis: acute appendicitis Hospital Course: She underwent laparoscopic appendectomy 05/03/24 which demonstrated a fluid-filled appendix related to adhesions without overt infection. She remained within the hospital to establish a care plan in regards to her homelessness. During this time she intermittently had difficulty completely voiding and was straight catheterized. She was discharged with self catheterizing materials as needed. Exam Vital Signs (past 8 hours): - 05/06/24 12:00 Temperature 98.1 F Pulse Rate 82 Respiratory Rate 16 Blood Pressure 108/58 L Pulse Oximetry 98 Oxygen Delivery Method Room Air Narrative Exam Narrative: Gen-adult woman alert and oriented Abdomen-Soft laparoscopic port incisions CDI Objective Labs 05/06/24 15:35 05/06/24 02:40 Labs: Laboratory Results - last 24 hr 05/06/24 05/06/24 05/06/24 02:40 05:39 15:35 WBC 21.2 H 15.1 H RBC 4.18 3.68 L Hgb 12.8 11.1 L Hct 37.7 33.6 L MCV 90.1 91.3 MCH 30.6 30.3 MCHC 33.9 33.2 RDW 14.6 14.4 Plt Count 374 316 Neut % (Auto) 93.9 H 87.7 H Lymph % (Auto) 2.4 L 5.7 L [place] % (Auto) 3.1 5.1 Eos % (Auto) 0.4 L 1.1 L Baso % (Auto) 0.2 0.4 Neut # (Auto) 28552 H 35922 H Lymph # (Auto) 500 L 900 L [place] # (Auto) 700 800 Eos # (Auto) 100 200 Baso # (Auto) 0 100 Sodium 142 Potassium 3.9 Chloride 104 Carbon Dioxide 32 BUN 23 H Creatinine 0.69 Estimated GFR > 60 BUN/Creatinine Ratio 33.3 H Glucose 165 H Lactate 1.5 Calcium 9.9 Total Bilirubin 0.6 AST 21 ALT 23 Alkaline Phosphatase 111 Total Protein 7.5 Albumin 4.0 Globulin 3.5 Albumin/Globulin Ratio 1.1 Lipase 106 Urine RBC 1-5/hpf Urine WBC 0-1/hpf Ur Squamous Epith Cells 1-5 /hpf Urine Bacteria Few (2-10) H Ur Culture Indicated? Cult not indicated Vol Urine Centrifuged 10ml (spun) U Opiates 300ng/mL cut Positive H Ur Oxycodone Screen Negative Urine Methadone Screen Negative Ur Barbiturates Screen Negative U Tricyclic Antidepress Negative Ur Phencyclidine Scrn Negative Ur Amphetamines Screen Negative U Methamphetamines Scrn Negative Ur MDMA Scrn (Ecstasy) Negative U Benzodiazepines Scrn Negative Urine Cocaine Screen Negative U Marijuana (THC) Screen Negative Urine pH Normal Urine Specific [place] Normal Ur Creatinine Normal PFSH Medical History Colostomy in place Traumatic perforation of rectum Healthy adult Surgical History History of colostomy reversal Social History household members: none Smoking Status: Never smoker Discharge Plan Discharge Plan Patient Disposition: Home Discharge orders & Medications Prescriptions: Continued No Known Home Medications Follow up/Referrals: Doctor Guevara MD [Primary Care Provider] - Visit Report/Discharge Packet Instructions: Sepsis, Ileus Stand Alone Forms: Patient Portal/API, Stroke Signs & Symptoms, Against Medical Advice Discharge Data Primary Care Provider: Doctor Paola Attending Provider: Dharmesh Hein Admit Date/Time: 05/06/24 06:12 Quality VTE Deep Vein Thrombosis/Pulmonary Embolism Present on Admission: No
--- NOTE | 2024-05-06 19:44 | PC.NURSE ---
Left AMA: Admitted this am: No nausea but does feel queasy at times. She would like the cartwright out. She was questioning what was happening and what the staff were doing for her. She couldnt recall Dr. Blanton seeing her until she was reminded he had been there. Pt feels her skin pigment is an unusual yellow toned color. It appears normal. Dr. Blanton made aware pt would like to see him again because she feels she wasn't told what was going on, she couldn't remember him being there. About 2 hours after this pt wanted to know if her bladder or her rectum had been nicked while she was in the OR. This did not occur. She is reporting she never gave consent for someone to do surgery on her. Brought up the signed consent and she thinks her signature was forged. Someone else signed it. She is becoming more anxious and is talking about going to another hospital. Dr. Barclay did come to the hospital and saw pt. Pt became verbally loud with MD. Posture is tense. Muscle tone is tense. She is talking with the Dr. Barclay about the surgery, she didn't consent to it, and she believes her rectum and bladder were nicked during the procedure. She feels the physician is lying to her. She wants the cartwright out. MD came back to the desk. Pt's call light came on and when entering the room the pt had disconnected her cartwright and had both of her hands on the end coming out of her bladder trying to pull it out. Pt was stopped. She is leaving and is adamant for cartwright removal and IV to come out. She is leaving. made aware pt is requesting to leave AMA and wants cartwright out. He said it was best for her to leave it in but she will not. Cartwright removed intact. IV removed intact. Dr. Barclay filled out AMA form. Dr Blanton came down to see patient. She is leaving, although she didn't say this time she was going to another hospital. Pt would not stay to see if she could void after cartwright removal. She was instructed to seek medical help if she was unable to void or have GI problems. Pt signed AMA form and was escorted out by Renetta GRADY. Pt then returned for a copy of the AMA form. Pt was given a copy of the form and left facility.
== END 2024-05-06 16:15 | disposition home or self-care (01) | DRG 389 ==
LOC: ED 05:05 → AC 06:13
PROVIDERS: Surgery; Admitting Provider Internal Medicine; Emergency Provider Emergency Medicine; Visit Provider Internal Medicine
DX: K56.7 Ileus, unspecified (principal); Z59.00 Homelessness unspecified; R11.0 Nausea; R33.9 Retention of urine, unspecified; Z90.49 Acquired absence of other specified parts of digestive tract
CPT/HCPCS: 36415; 74177; 80053; 80305; 81003; 81015; 83605; 83690; 85025; 96374; 96375; 99285; 99291; G0378; J1170; J2405; Q9967

== ENCOUNTER 2024-05-07 10:56 | Emergency (ER) | payer SELFPAY ==
[2024-05-06 08:04] VITALS: BMI 23.4
[2024-05-07 11:02] VITALS: BP 143/63; PULSE 125; RESP 18; TEMP 36.7; O2SAT 97; BMI 23.4
[2024-05-07 11:25] VITALS: PULSE 102
== END 2024-05-07 12:30 | disposition left against medical advice (07) ==
PROVIDERS: Emergency Provider Emergency Medicine
DX: R33.9 Retention of urine, unspecified (principal)
CPT/HCPCS: 51798; 99282

== ENCOUNTER 2024-05-08 03:12 | Emergency (ER) | payer SELFPAY ==
[2024-05-08] VITALS (9 sets, daily range): BP systolic 117–150; BP diastolic 56–70; PULSE 75–97; RESP 11–27; TEMP 36.7; O2SAT 91–99; BMI 23.4
--- NOTE | 2024-05-08 03:17 | ED.ABDPAIN ---
HPI - Abdominal Pain General Stated Complaint: abd pain Time Seen by Provider: 05/08/24 03:17 Related Data Home Medications Medication Instructions Recorded Confirmed No Known Home Medications 05/06/24 05/06/24 Allergies Allergy/AdvReac Type Severity Reaction Status Date / Time Penicillins Allergy Mild Rash Verified 05/06/24 07:24 Patient History Medical History Colostomy in place Traumatic perforation of rectum Healthy adult Surgical History History of colostomy reversal Social History household members: none Smoking Status: Never smoker Smoking Status: Never smoker alcohol intake frequency: 0-2 drinks per day Substance Use Type: does not use Discharge Plan Departure Prescriptions: No Action No Known Home Medications Referrals: Miscellaneous,Doctor, [Primary Care Provider] -
--- NOTE | 2024-05-08 03:45 | ED_ITS ---
HPI - Abdominal Pain General Chief Complaint: Abdominal Pain Stated Complaint: abd pain Time Seen by Provider: 05/08/24 03:17 History of Present Illness HPI narrative: 59-year-old female complains of abdominal distention, inability to urinate normally, and lack of bowel movement for multiple days. Patient has history of remote rectal injury with prior colostomy and interval takedown reanastomosis years ago, more recently underwent 05/03/2024 laparoscopic appendectomy here, with subsequent difficulty urinating, presenting 05/06/2024 with abdominal discomfort and leukocytosis with postoperative changes on CT scan but possible ileus, when patient was admitted to the hospital for bowel regimen, did consent to Negrete catheter placement but apparently demanded that it be removed and left against medical advice. Patient currently without indwelling urinary catheter, she has not performing self catheter bladder decompression, complains of persisting abdominal distention, lack of bowel movement for multiple days, ongoing urinary dribbling but inability to urinate Negrete on demand. No fevers or chills. No nausea or vomiting. She also denies cough shortness of breath chest pain. She denies flank pain and back pain. Related Data Home Medications Medication Instructions Recorded Confirmed No Known Home Medications 05/06/24 05/06/24 Allergies Allergy/AdvReac Type Severity Reaction Status Date / Time Penicillins Allergy Mild Rash Verified 05/06/24 07:24 Review of Systems Review of Systems Narrative: per HPI Patient History Medical History Colostomy in place Traumatic perforation of rectum Healthy adult Surgical History History of colostomy reversal Social History household members: none Smoking Status: Never smoker Smoking Status: Never smoker alcohol intake frequency: 0-2 drinks per day Substance Use Type: does not use Exam Narrative Exam Narrative: GENERAL: Well-developed patient, in mild distress. HEAD: Atraumatic. Normocephalic. EYES: Pupils equal round and reactive. Extraocular motions intact. No scleral icterus. No injection or drainage. ENT: Nose without bleeding, purulent drainage. Throat without erythema, tonsillar hypertrophy or exudate. Airway patent. NECK: Trachea midline. Non tender CARDIOVASCULAR: Regular rate and rhythm without murmurs, gallops, or rubs. RESPIRATORY: Clear to auscultation. Breath sounds equal bilaterally. No wheezes, rales, or rhonchi. GASTROINTESTINAL: Ventral abdomen with laparoscopic scars and bandages, no redness or erythema, minimal incisional tenderness, hypoactive bowel tones without rushes or tinkles. EXTREMITIES: No edema or joint tenderness. BACK: Nontender without deformity or crepitance. No flank tenderness. NEURO: AOx3. SKIN: No rash or erythema of visible areas Initial Vital Signs Initial Vital Signs: Vital Signs Pulse Rate 86 05/08/24 03:33 Pulse Oximetry 98 05/08/24 03:33 Course Orders Ordered: ED Orders 05/08/24 04:35 Complete Blood Count AUTO DIFF Stat Comprehensive Metabolic Panel Stat Lipase Stat 05/08/24 04:49 Urinalysis and Microscopic Stat 05/08/24 04:55 Ictotest Urine Stat 05/08/24 05:33 US pelvic complete Stat Vital Signs Vital signs: Vital Signs - 8 hr 05/08/24 03:33 05/08/24 03:34 05/08/24 04:46 Temperature 98.1 F Pulse Rate 86 97 H 75 Respiratory Rate 16 11 L Blood Pressure 150/70 H Pulse Oximetry 98 97 99 Oxygen Delivery Method Room Air 05/08/24 05:05 05/08/24 05:06 05/08/24 05:06 Temperature Pulse Rate 81 Respiratory Rate 16 Blood Pressure 133/61 Pulse Oximetry 91 97 Oxygen Delivery Method 05/08/24 05:30 05/08/24 05:30 05/08/24 06:00 Temperature Pulse Rate 77 76 Respiratory Rate 20 20 Blood Pressure 127/58 L Pulse Oximetry 96 97 Oxygen Delivery Method 05/08/24 06:00 05/08/24 06:30 05/08/24 07:00 Temperature Pulse Rate 79 81 Respiratory Rate 22 27 H Blood Pressure 117/56 L Pulse Oximetry 99 99 Oxygen Delivery Method Room Air MDM - Abdominal Pain Medical Records Attestation: I reviewed the patient's medical records. Lab Data Attestation: I reviewed the patient's lab results. 05/08/24 04:35 05/08/24 04:35 Labs: Lab Results 05/08/24 05/08/24 Range/Units 04:35 04:55 WBC 8.4 (4.5-11.0) X10^3/uL RBC 3.82 L (4.0-5.2) X10^6/uL Hgb 11.6 L (12.0-16.0) g/dL Hct 34.6 L (36-46) % MCV 90.6 (80-100) fL MCH 30.5 (26-34) PG MCHC 33.6 (30-36) % RDW 14.4 (11.6-14.8) % Plt Count 383 (150-400) X10^3/uL Neut % (Auto) 76.9 H (50-75) % Lymph % (Auto) 9.8 L (25-40) % Payne % (Auto) 10.7 (3-14) % Eos % (Auto) 2.0 (2-4) % Baso % (Auto) 0.6 (0-2) % Neut # (Auto) 6500 (2719-0606) /uL Lymph # (Auto) 800 L (4323-7961) /uL Payne # (Auto) 900 (0-900) /uL Eos # (Auto) 200 (0-450) /uL Baso # (Auto) 0 (0-100) /uL Sodium 139 (137-145) mmol/L Potassium 3.8 (3.4-5.1) mmol/L Chloride 105 (98-107) mmol/L Carbon Dioxide 34 H (22-32) mmol/L BUN 12 (7-17) mg/dL Creatinine 0.53 (0.52-1.04) mg/dL Estimated GFR > 60 (>60) mL/min BUN/Creatinine Ratio 22.6 H (6-22) Glucose 126 H (70-100) mg/dL Calcium 8.8 (8.4-10.2) mg/dL Total Bilirubin 0.9 (0.2-1.3) mg/dL AST 37 H (14-36) IU/L ALT 28 (<35) IU/L Alkaline Phosphatase 102 (38-126) U/L Total Protein 6.6 (6.3-8.2) g/dL Albumin 3.4 L (3.5-5.0) g/dL Globulin 3.2 (1.7-4.1) g/dL Albumin/Globulin Ratio 1.1 (1.0-2.8) Lipase 42 D (23-300) U/L Urine Color Dark yellow Urine Appearance Clear Urine pH 6.0 (4.5-8.0) Ur Specific Oral 1.020 (1.000-1.035) Urine Protein Trace H (Negative) Urine Glucose (UA) Negative (Negative) g/dL Urine Ketones 2+ H (NEGATIVE) Urine Occult Blood Trace-intact (Negative) Urine Nitrate Negative (Negative) Urine Bilirubin 1+ H (NEGATIVE) Ur Bilirubin Confirm Negative (Negative) Urine Urobilinogen 1.0 (0.2) E.U./dL Ur Leukocyte Esterase Negative (NEGATIVE) Urine RBC 1-5/hpf (0-5/HPF) Urine WBC 0-1/hpf (0-5/HPF) Ur Squamous Epith Cells 1-5 /hpf (0-5/HPF) Urine Bacteria Few (2-10) H (None) Hyaline Casts 0-1/lpf (None) Urine Mucus 2+ H (Negative) Ur Culture Indicated? Cult not indicated Vol Urine Centrifuged 10ml (spun) MDM Narrative Medical decision making narrative: Persisting abdominal pain status post laparoscopic appendectomy 05/03/2024, inability to urinate normally, left against medical advice from 05/06/2024 hospitalization here demanding that Negrete catheter placed at admission be removed, has urinary dribbling since that time, sensation of abdominal distention, lack of bowel movement. Afebrile, sirs screen negative. Minimal incisional tenderness on exam, ventral wounds not infected appearing, no obvious gross ventral hernia. Repeat labs pending. We will request bladder ultrasound, if significant PVR consider Negrete catheter placement if patient amenable. Check urinalysis. Labs unremarkable, white blood cell count previously elevated has now normalized. Urinalysis negative. Bladder scan 76-[address] scan mentioned 5 cm ovarian cyst, we will obtain pelvic ultrasound. Patient agreeable Pelvic ultrasound transabdominal, bladder volume noted to be 200 mL per diesel technician mechanic, patient was unable to void to consider transvaginal approach. She felt there was right ovarian cyst complex appearing that was small and 2 cm in diameter, small follicular like cyst left ovary, good flow to both ovaries. No free fluid mentioned. Sono tech verbal report Offered urinary catheter for discharge, declined. Will discharge patient home. Follow up with Urology advised. Follow up with Gynecology regarding perimenopausal/postmenopausal ovarian cyst. Also follow up with Dr. Miller for post appendectomy care Critical Care Time Critical Care Time Critical Care Time: Yes Total Critical Care Time: 31 Attestation: The high probability of a clinically significant, sudden or life threatening deterioration of the [abdominopelvic, gastrointestinal, gynecologic, urologic, renal] system(s) required my full and direct attention, intervention and personal management. The aggregate critical care time was [31] minutes. This time is in addition to time spent performing reported procedures but includes the following: [x] Data Review and interpretation [x] Patient assessment and monitoring of vital signs [x] Documentation [x] Medication orders and management Discharge Plan Departure Patient Disposition: Home Clinical Impression: Urinary incontinence, Status post appendectomy, Ovarian cyst Activity Restrictions/Additional Instructions: Urinary incontinence status post recent laparoscopic appendectomy by your surgeon Dr Miller. Awaiting post-appendectomy surgery clinic follow up, call her office for post surgery follow up appointment. Postoperatively having difficulty with urination, urinary incontinence, advised to self-catheterize, offered Negrete catheter indwelling catheter, declined for now. Follow up with local urologist for urodynamic testing or other evaluation of your urinary incontinence problems, contact information given for local urologist offices Dr Arcos and Dr Palmer. Follow up with silvering applicator Dr. Patterson for the small ovarian cysts, which would be unusual perimenopausal/postmenopausal, her office also provided. Prescriptions: No Action No Known Home Medications Referrals: Radha Miller MD [Physician] - Samantha Patterson MD [Physician] - Anthony Palmer MD [Physician] - Miscellaneous,MD Earl [Primary Care Provider] - Jordan Arcos MD [Physician] - Stand Alone Forms: Patient Portal/API
[2024-05-08 04:44] LABS: Add Manual Diff / Slide Review NO; Basophils Absolute Auto 0 /uL (0-100); Basophils Percent Auto 0.6 % (0-2); Eosinophils Absolute Auto 200 /uL (0-450); Hematocrit 34.6 % (36-46); Hemoglobin 11.6 g/dL (12.0-16.0); Lymphocytes Absolute Auto 800 /uL (1100-4500); Lymphocytes Percent Auto 9.8 % (25-40); Mean Corpuscular HGB Conc 33.6 % (30-36); Mean Corpuscular Hemoglobin 30.5 PG (26-34); Mean Corpuscular Volume 90.6 fL (80-100); Monocytes Absolute Auto 900 /uL (0-900); Monocytes Percent Auto 10.7 % (3-14); Neutrophils Absolute Auto 6500 /uL (1500-7000); Neutrophils Percent Auto 76.9 % (50-75); Platelet Count 383 X10^3/uL (150-400); Red Blood Cell Count 3.82 X10^6/uL (4.0-5.2); Red Cell Distribution Width 14.4 % (11.6-14.8); White Blood Cell Count 8.4 X10^3/uL (4.5-11.0)
[2024-05-08 04:56] LABS: Alanine Aminotransferase 28 IU/L (<35); Albumin 3.4 g/dL (3.5-5.0); Albumin Globulin Ratio 1.1 (1.0-2.8); Alkaline Phosphatase 102 U/L (38-126); Aspartate Aminotransferase 37 IU/L (14-36); BUN Creatinine Ratio 22.6 (6-22); Bilirubin Total 0.9 mg/dL (0.2-1.3); Blood Urea Nitrogen 12 mg/dL (7-17); Calcium 8.8 mg/dL (8.4-10.2); Carbon Dioxide 34 mmol/L (22-32); Chloride 105 mmol/L (98-107); Estimated Glomerular Filt Rate > 60 mL/min (>60); Globulin 3.2 g/dL (1.7-4.1); Glucose 126 mg/dL (70-100); HEMOLYSIS < 15 (0-50); Lipase 42 U/L (23-300); Potassium 3.8 mmol/L (3.4-5.1); Sodium 139 mmol/L (137-145); Total Protein 6.6 g/dL (6.3-8.2)
[2024-05-08 05:25] LABS: Appearance Urine UA CLEAR; Bilirubin Urine UA 1+ (NEGATIVE); Glucose Urine UA NEGATIVE (Negative); Ketones Urine UA 2+ (NEGATIVE); Leukocyte Esterase Urine UA NEGATIVE (NEGATIVE); Nitrite Urine UA NEGATIVE (Negative); Occult Blood Urine UA TRACE-INTACT (Negative); Protein Urine UA TRACE (Negative)
[2024-05-08 05:28] LABS: Color Urine UA Dark Yellow
[2024-05-08 05:30] LABS: Bacteria Urine Few (2-10); RBC Urine 1-5/HPF (0-5/HPF); Squamous Epithelial Cell Urine 1-5 /HPF (0-5/HPF); Urine Volume 10mL (spun); WBC Urine 0-1/HPF (0-5/HPF)
[2024-05-08 05:31] LABS: Culture Indicated Urine Cult Not Indicated; Hyaline Casts Urine 0-1/LPF; Mucus Urine 2+ (Negative)
[2024-05-08 05:32] LABS: Ictotest Urine Negative (Negative)
--- NOTE | 2024-05-08 05:33 | DI.US.S_ITS ---
PROCEDURE: US PELVIC COMPLETE INDICATIONS: lower abdom pain, hx ov cysts TECHNIQUE: Real-time scanning was performed of the pelvic organs, with image documentation. Additional endovaginal scanning was necessary due to incomplete visualization of the adnexal and endometrial structures by transabdominal scanning. COMPARISON: [facility], CT, CT ABDOMEN PELVIS W CON, 05/06/2024, 3:39. [facility], CT, CT ABDOMEN PELVIS W CON, 05/03/2024, 6:16. [facility], US, US PELVIC COMPLETE, 07/03/2022, 21:26. FINDINGS: Uterus: Uterus is anteverted and normal in size at 7.1 x 3.5 x 5.4 cm. The myometrium is homogeneous. The endometrium measures 5.1 mm combined thickness. Ovaries: The right ovary measures 3.0 x 4.0 x 2.8 cm, with a calculated ovarian volume of 17.5 cc. Several adjacent right ovarian follicles are present. The left ovary measures 5.6 x 6.5 x 3.7 cm, with a calculated ovarian volume of 70.0 cc. Left ovarian cyst with a single thin septation versus 2 adjacent simple cysts, which measure up to 6.5 cm in diameter. Other: No pathologic free abdominal or pelvic fluid. IMPRESSION: 1. No definite signs of ovarian torsion although Doppler evaluation is incomplete. If indicated clinically, repeat Doppler interrogation could be performed. 2. Left ovarian 6.5 cm cyst with a thin septation, which previously measured 9.5 cm on ultrasound from 07/03/2022. There is no significant discrepancy when compared to the overnight preliminary report. Approved by: Raheem Mae M.D. on 05/08/2024 at 8:09
== END 2024-05-08 07:12 | disposition home or self-care (01) ==
PROVIDERS: Emergency Provider Emergency Medicine
DX: R10.9 Unspecified abdominal pain (principal); R32 Unspecified urinary incontinence; N83.202 Unspecified ovarian cyst, left side
CPT/HCPCS: 36415; 51798; 76830; 76856; 80053; 81001; 83690; 85025; 93976; 99284

== ENCOUNTER 2025-09-02 11:28 | Emergency (ER) | payer SELFPAY ==
[2024-09-08 13:42] VITALS: BMI 23.4
[2025-09-02 12:05] VITALS: BP 158/72; PULSE 66; RESP 16; TEMP 36.7; O2SAT 99; BMI 25.0
--- NOTE | 2025-09-02 15:43 | PC.NURSE ---
Pt denies any urinary symptoms or pain. States she thinks AI is trying to take her identity. Pt has multiple bottles of urine in her bag that she reports she has been keeping track of
--- NOTE | 2025-09-02 15:54 | ED_ITS ---
HPI - Female Genitourinary General Chief complaint: Urogenital-Female Stated complaint: Urinary issues Time Seen by Provider: 09/02/25 11:58 Source: patient Mode of arrival: Ambulatory History of Present Illness HPI Narrative: Patient is a 60-year-old female presenting today with multiple bottles of urine which he is collected over the last 4 days. She would like him tested for chemicals. She gave us a clean urine sample which is negative. She denies any abdominal pain frequency she has no concern for STD. I have explained to her that we can not test though samples. She has no other complaints. Related Data Home Medications ?Medication ?Instructions ?Recorded ?Confirmed No Known Home Medications 05/06/2412/31 Allergies Allergy/AdvReac Type Severity Reaction Status Date / Time Penicillins Allergy Mild Rash Verified 01/23/25 14:35 Patient History Medical History Colostomy in place Traumatic perforation of rectum Healthy adult Surgical History History of colostomy reversal Exam Initial Vital Signs Initial Vital Signs: Vital Signs Temperature 98.1 F 09/02/25 12:05 Pulse Rate 66 09/02/25 12:05 Respiratory Rate 16 09/02/25 12:05 Blood Pressure 158/72 H 09/02/25 12:05 Pulse Oximetry 99 09/02/25 12:05 Oxygen Delivery Method Room Air 09/02/25 12:05 GENERAL: Well-appearing, well-nourished and in no acute distress. CARDIOVASCULAR: peripheral pulses in tact, cap refill <2 sec RESPIRATORY: No respiratory distress, speaks in full sentences without difficulty EXTREMITIES: Normal range of motion, no clubbing or edema. Neurovascularly intact NEUROLOGICAL: Cranial nerves II through XII grossly intact. Normal gait and speech. SKIN: Warm, dry, no petechiae, no rashes or lesions. Course Orders Ordered: ED Orders 09/02/25 12:12 Consult to SORT SUPERVISOR - Missile Tracking Technician Stat 09/02/25 16:39 Chlamydia Gonorrhea PCR -URINE Stat Vital Signs Vital signs: Vital Signs - 8 hr 09/02/25 12:05 09/02/25 16:06 Temperature 98.1 F Pulse Rate 66 76 Respiratory Rate 16 14 Blood Pressure 158/72 H 141/69 H Pulse Oximetry 99 99 Oxygen Delivery Method Room Air Room Air MDM - Female Genitourinary Lab Data Labs: Lab Results 09/02/25 Range/Units 16:39 Ur Chlamydia DNA (PCR) Not detected N gonorrhoeae DNA (PCR) Not detected Urine Dip Bedside Urine Glucose Negative Bedside Urine Bilirubin - Negative Bedside Urine Ketone - Negative Urine Specific [place] 1.010 Bedside Urine Occult Blood - Negative Bedside Urine pH 6.0 Bedside Urine Protein - Negative Bedside Urine Urobilinogen - Negative Bedside Urine Nitrite - Negative Bedside Urine Leukocytes - Negative Esterase MDM Narrative Medical decision making narrative: Patient healthy 60-year-old female presenting today with multiple bottles but urine wanting testing. The urine has been collected over number of days. 1 does have some sediment. Urinalysis today does not show any evidence UTI. Offered testing for STDs. At this time no need for any further testing. Discharge Plan Departure Patient Disposition: Home Clinical Impression: Feared complaint without diagnosis Instructions: DI for Urinary Tract Infection (UTI) Activity Restrictions/Additional Instructions: *You have been diagnosed with at this time you do not have any evidence of bladder infection *What to do: *Continue to take medications as directed *Follow up with your primary care provider in 2-3 days or call [phone] *Return to ER if you should have any new, worsening or concerning symptoms Prescriptions: No Action No Known Home Medications Referrals: Doctor Guevara MD [Primary Care Provider, Medical] Stand Alone Forms: Patient Portal/API
--- NOTE | 2025-09-02 16:03 | CM.SWNOTE ---
ED BRIDGE TOLL COLLECTOR Note: Reviewed chart and discusse pt with chief unit forester. BRIDGE TOLL COLLECTOR consulted due to pt experiencing houselessness. Per chief unit forester, pt declines to speak with Manager Distribution at this time. ED BRIDGE TOLL COLLECTOR available for housing, food and MH resources should pt consent to consult. Abeba Peter, BARREL REAMER
[2025-09-02 16:06] VITALS: BP 141/69; PULSE 76; RESP 14; O2SAT 99
[2025-09-02 18:10] LABS: Urine N gonorrhoeae NOT DETECTED
[2025-09-02 18:20] LABS: Urine Chlamydia NOT DETECTED
== END 2025-09-02 16:08 | disposition home or self-care (01) ==
PROVIDERS: Emergency Provider Emergency Medicine
DX: N39.9 Disorder of urinary system, unspecified (principal)
CPT/HCPCS: 81003; 87491; 87591; 99281; 99282

== ENCOUNTER 2025-09-30 10:56 | Emergency (ER) | payer SELFPAY ==
[2024-09-08 13:42] VITALS: BMI 23.4
[2025-09-30 11:15] VITALS: BP 137/67; PULSE 79; RESP 18; TEMP 36.7; O2SAT 96
--- NOTE | 2025-09-30 11:40 | ED.FEMALEGU ---
HPI - Female Genitourinary General Chief complaint: Urogenital-Female Stated complaint: Dark cloudy urine Time Seen by Provider: 09/30/25 11:01 Source: patient Mode of arrival: Ambulatory History of Present Illness HPI Narrative: 60-year-old female presents with urine in a [employer]con's cup. She is homeless and reports urine color abnormal and sediments in the cups but she is asymptomatic at this time with no fever chills back pain abdominal pain dysuria urgency frequency or vaginal discharge. She denies any sexual activity in the past year. Patient is requesting urine to be tested from [employer] cup. Other than what is stated 14 point review of system is negative. Related Data Home Medications ?Medication ?Instructions ?Recorded ?Confirmed No Known Home Medications 05/06/24 01/23/25 Allergies Allergy/AdvReac Type Severity Reaction Status Date / Time Penicillins Allergy Mild Rash Verified 01/23/25 14:35 Review of Systems Review of Systems ROS Unobtainable: All systems reviewed & are unremarkable except as noted in HPI and below Patient History Medical History Colostomy in place Traumatic perforation of rectum Healthy adult Surgical History History of colostomy reversal Exam Narrative Exam Narrative: GENERAL: [60] year old patient appears stated age. Well-developed patient, in mild distress. HEAD: Atraumatic. Normocephalic. EYES: Pupils equal round and reactive. Extraocular motions intact. No scleral icterus. No injection or drainage. NECK: Trachea midline. Non tender CARDIOVASCULAR: Regular rate and rhythm without murmurs, gallops, or rubs. RESPIRATORY: Clear to auscultation. Breath sounds equal bilaterally. No wheezes, rales, or rhonchi. GASTROINTESTINAL: Abdomen soft, non-tender, nondistended. EXTREMITIES: No edema or joint tenderness. BACK: Nontender without deformity or crepitance. No flank tenderness. NEURO: AOx3. SKIN: No rash or erythema of visible areas Initial Vital Signs Initial Vital Signs: Vital Signs Temperature 98.0 F 09/30/25 11:15 Pulse Rate 79 09/30/25 11:15 Respiratory Rate 18 09/30/25 11:15 Blood Pressure 137/67 09/30/25 11:15 Pulse Oximetry 96 09/30/25 11:15 Oxygen Delivery Method Room Air 09/30/25 11:15 Course Vital Signs Vital signs: Vital Signs - 8 hr 09/30/25 11:15 Temperature 98.0 F Pulse Rate 79 Respiratory Rate 18 Blood Pressure 137/67 Pulse Oximetry 96 Oxygen Delivery Method Room Air MDM - Female Genitourinary MDM Narrative Medical decision making narrative: All lab work, vital signs, nurse triage note, medication list, previous ER visits, and all imaging studies reviewed. Differential diagnosis UTI, dehydration, fungal infection. Discharge Plan Departure Patient Disposition: Home Clinical Impression: Encounter for medical screening examination Activity Restrictions/Additional Instructions: Return with new or worsening symptoms. Keep hydrated. Prescriptions: No Action No Known Home Medications Referrals: Miscellaneous,Doctor, MD [Primary Care Provider, Medical] Stand Alone Forms: Patient Portal/API
[2025-09-30 12:17] LABS: Culture Indicated Urine Cult Not Indicated
[2025-09-30 12:45] VITALS: BP 125/72; PULSE 79; O2SAT 97
== END 2025-09-30 12:45 | disposition home or self-care (01) ==
PROVIDERS: Emergency Provider Family Medicine
DX: Z71.1 Person with feared health complaint in whom no diagnosis is made (principal); Z59.00 Homelessness unspecified
CPT/HCPCS: 81003; 81015; 99281; 99282

== ENCOUNTER 2025-10-10 10:42 | Emergency (ER) | payer SELFPAY ==
[2024-09-08 13:42] VITALS: BMI 23.4
[2025-10-10 11:31] VITALS: BP 139/88; PULSE 92; RESP 17; TEMP 36.6; O2SAT 97; BMI 23.4
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
--- NOTE | 2025-10-10 11:37 | DI.RAD.S_ITS ---
PROCEDURE: XR PELVIS 1-2V INDICATIONS: Bilateral posterior hip pain, nontruamatic TECHNIQUE: 1 view(s) of the pelvis acquired. COMPARISON: [facility], CT, CT KUB, 08/30/2024, 14:54. FINDINGS: Bones: No fractures or dislocations. No suspicious bony lesions. Soft tissues: Visualized bowel gas pattern is normal. Moderate colonic stool. No suspicious soft tissue calcifications. IMPRESSION: Moderate stool without obstruction. Dictated by: Eliza Nolan M.D. on 10/10/2025 at 12:17 Approved by: Eliza Nolan M.D. on 10/10/2025 at 12:18
[2025-10-10] MEDS: KETOROLAC 30 MG/ML VIAL IM (12:11)
[2025-10-10 12:32] VITALS: BP 141/69; PULSE 77; RESP 18; O2SAT 99
== END 2025-10-10 14:08 | disposition home or self-care (01) ==
PROVIDERS: Emergency Provider Physician Assistant
DX: M54.16 Radiculopathy, lumbar region (principal); M62.830 Muscle spasm of back
CPT/HCPCS: 72170; 81003; 96372; 99283; J1885